=== PATIENT | female | born 1965 | race Caucasian/White ===

== ENCOUNTER → 2018-03-13 10:16 | Outpatient (CLI) | payer OTHER, SELFPAY ==
[2018-03-13 12:51] LABS: Erythrocyte Sedimentation Rate 15 mm/hr (0-30)
[2018-03-13 12:52] LABS: Absolute Lymphocyte Count 2.45 X10^3/ul (0.83-4.51); Absolute Neutrophil Count 5.1 X10^3/uL (2.0-7.7); Basophil# 0.03 X10^3/uL; Basophil% 0.3 % (0-1); Eosinophils% 2.3 % (0-5); Hematocrit 44.1 % (37-47); Hemoglobin 14.9 g/dl (12.0-15.0); Lymphocyte # 2.45 X10^3/ul (4.0); Lymphocyte % 28.6 % (19-41); Mean Corp Hgb Conc 33.8 g/gl (32-36); Mean Corpuscular Hgb 31.8 pg (27.0-32.0); Mean Platelet Vol. 9.7 fl (6.2-12.0); Monocyte# 0.73 X10^3/uL; Monocyte% 8.5 % (0-10); Neutrophil # 5.13 X10^3/uL (2.7-7.7); Neutrophil % 59.8 % (47-70); Platelet Count 286 K/mm3 (150-450); RBC Distribution Width SD 43.4 fl (35.1-43.9); Red Blood Count 4.69 M/mm3 (4.2-5.4); White Blood Count 8.6 K/mm3 (4.4-11.0)
[2018-03-13 12:53] LABS: POSITIVE COUNT NO; POSITIVE DIFFERENTIAL NO; POSITIVE MORPHOLOGY NO
[2018-03-13 15:40] LABS: ALB/GLOB Ratio 0.9 RATIO (0.9-2.4); AST(SGOT) 21 U/L (15-37); Alanine Aminotransfer ALT/SGPT 39 U/L (13-56); Albumin, Serum 3.6 g/dL (3.2-5.0); Alkaline Phosphatase 95 U/L (45-117); Anion Gap 8 (5-15); BUN 15 mg/dL (7-18); CRP 5.17 mg/L (0.0-3.0); Calcium,Total 9.1 mg/dL (8.5-10.1); Chloride 106 mmol/L (98-107); Creatinine, Serum 0.71 mg/dL (0.55-1.02); EST Glomerular Filtration Rate 91 mL/min (>60); Est Glom Filt Rate - Afr Amer 110 mL/min (>60); Globulin 3.8 g/dL (2.2-4.2); Glucose 91 mg/dL (74-106); Potassium 3.8 mmol/L (3.5-5.1); Protein, Total 7.4 g/dL (6.4-8.2); Rheumatoid Factor < 10.0 IU/mL (<15); Sodium Level 141 mmol/L (136-145)
[2018-03-15 12:06] LABS: ANTINUCLEAR ANTIBODIES DIRECT Negative (Negative)
[2018-03-17 11:22] LABS: CCP IgG Antibodies 4 units (0-19); HEPATITIS B SURFACE AG Negative (Negative); HLA B27 Negative (.); Hep B Surface Antibodies Non Reactive (.); Hep C Antibodies <0.1 s/co ratio (0.0-0.9)
== END ==
LOC: MTLAB 10:20
PROVIDERS: Family Provider Family Medicine; PCP Family Medicine; Visit Provider Internal Medicine Rheumatology
DX: L40.59 Other psoriatic arthropathy (principal); L40.8 Other psoriasis; M79.7 Fibromyalgia; K21.9 Gastro-esophageal reflux disease without esophagitis; I10 Essential (primary) hypertension; G43.909 Migraine, unspecified, not intractable, without status migrainosus
CPT/HCPCS: 36415; 72170; 80053; 81374; 85025; 85652; 86038; 86140; 86200; 86431; 86706; 86803; 87340

== ENCOUNTER 2018-03-15 12:26 | Emergency (ER) | payer OTHER, SELFPAY ==
[2018-03-15 12:27] VITALS: BP 112/70; PULSE 118; RESP 18; TEMP 36.2; O2SAT 96; BMI 44.1
--- NOTE | 2018-03-15 12:51 | ED.VISSUMM ---
- ER Visit Summary Date of Service: 03/15/18 Chief Complaint: Abdominal pain History of Present Illness: The patient is a 53 F presenting with right upper quadrant abdominal pain. She states she had an episode about a month ago with similar complaints. It then resolved. She states right upper quadrant pain started again today. No change with eating. She has associated nausea with no vomiting. She has constipation. She denies fever. She went to urgent care today and they sent her to the ED for further evaluation. Physical Examination: Vitals are stable. Patient is afebrile. Alert no acute distress. HEENT exam is unremarkable. Neck is supple. Lungs are clear and equal bilaterally. Heart is regular rate and rhythm. Abdomen is soft right upper quadrant tenderness with no rebound or guarding Extremities are unremarkable. Skin is warm and dry. No focal neurologic deficit. Remainder of exam is unremarkable. Emergency Department Course and Treatment: Patient declined pain medications. CBC shows a white count of 11.5. Chemistries unremarkable other than BUN 28. Liver lipase are normal. Ultrasound of the gallbladder shows a solitary gallstone, fatty infiltration of the liver. On re-evaluation, patient is resting comfortably. She is requesting to go home. She is given a prescription for Bentyl and Zofran. She is advised to follow-up with her primary care physician. Advised return ED if worsening complaints. Disposition: Discharge home Impression: Cholelithiasis, abdominal pain This note was generated with [employer] dictation software. It may contain incorrect words, spelling, and punctuation that were not noted in review of the chart prior to signing ED Disposition - Plan for ED Patient: Chief Complaint: Abd Pain Instructions: ED Abdominal Pain Gallstone Poss Prescriptions: Ondansetron [Zofran Odt] 4 mg PO Q8H PRN PRN #10 tablet PRN Reason: Nausea Dicyclomine HCl [Bentyl] 20 mg PO TIDAC #20 capsule Referrals: Raymundo Guidry MD [Primary Care Provider] - Mario Posadas MD [STAFF PHYSICIAN] -
[2018-03-15 13:11] LABS: Absolute Lymphocyte Count 2.77 X10^3/ul (0.83-4.51); Absolute Neutrophil Count 7.3 X10^3/uL (2.0-7.7); Basophil# 0.02 X10^3/uL; Basophil% 0.2 % (0-1); Eosinophil# 0.24 X10^3/uL; Eosinophils% 2.1 % (0-5); Hematocrit 43.8 % (37-47); Hemoglobin 14.6 g/dl (12.0-15.0); Lymphocyte # 2.77 X10^3/ul (4.0); Lymphocyte % 24.1 % (19-41); Mean Corp Hgb Conc 33.3 g/gl (32-36); Mean Corpuscular Hgb 31.3 pg (27.0-32.0); Mean Platelet Vol. 8.9 fl (6.2-12.0); Monocyte# 1.07 X10^3/uL; Monocyte% 9.3 % (0-10); Neutrophil # 7.34 X10^3/uL (2.7-7.7); Neutrophil % 63.9 % (47-70); POSITIVE COUNT NO; POSITIVE DIFFERENTIAL NO; POSITIVE MORPHOLOGY NO; Platelet Count 257 K/mm3 (150-450); RBC Distribution Width CV 13.2 % (11.6-14.6); RBC Distribution Width SD 45.1 fl (35.1-43.9); Red Blood Count 4.66 M/mm3 (4.2-5.4); White Blood Count 11.5 K/mm3 (4.4-11.0)
[2018-03-15 13:26] LABS: AST(SGOT) 23 U/L (15-37); Alanine Aminotransfer ALT/SGPT 36 U/L (13-56); Albumin, Serum 3.6 g/dL (3.2-5.0); Alkaline Phosphatase 93 U/L (45-117); Anion Gap 8 (5-15); BUN 28 mg/dL (7-18); BUN/Creat Ratio 27.5 RATIO (10-20); Bilirubin, Direct 0.08 mg/dL (0.00-0.30); Calcium,Total 9.2 mg/dL (8.5-10.1); Chloride 107 mmol/L (98-107); Creatinine, Serum 1.02 mg/dL (0.55-1.02); EST Glomerular Filtration Rate 60 mL/min (>60); Est Glom Filt Rate - Afr Amer 73 mL/min (>60); Globulin 3.9 g/dL (2.2-4.2); Glucose 93 mg/dL (74-106); Lipase 129 U/L (73-393); Potassium 3.7 mmol/L (3.5-5.1); Protein, Total 7.5 g/dL (6.4-8.2); Sodium Level 140 mmol/L (136-145)
--- NOTE | 2018-03-15 15:01 | ED.DEP ---
ED Disposition - Plan for ED Patient: Chief Complaint: Abd Pain Instructions: ED Abdominal Pain Gallstone Poss Prescriptions: Ondansetron [Zofran Odt] 4 mg PO Q8H PRN PRN #10 tablet PRN Reason: Nausea Dicyclomine HCl [Bentyl] 20 mg PO TIDAC #20 capsule Referrals: Raymundo Guidry MD [Primary Care Provider] - Mario Posadas MD [STAFF PHYSICIAN] -
[2018-03-15 15:17] VITALS: BP 137/80; PULSE 67; RESP 18; O2SAT 96
== END 2018-03-15 15:18 | disposition home or self-care (01) ==
LOC: ED 12:54
PROVIDERS: Emergency Provider Emergency Medicine; Family Provider Family Medicine; PCP Family Medicine
DX: K80.20 Calculus of gallbladder without cholecystitis without obstruction (principal); K76.0 Fatty (change of) liver, not elsewhere classified; I10 Essential (primary) hypertension; Z72.0 Tobacco use
CPT/HCPCS: 76705; 80048; 80076; 83690; 85025; 99283; A4216

== ENCOUNTER → 2018-06-02 14:56 | Outpatient (CLI) | payer OTHER, SELFPAY ==
[2018-06-02 16:17] LABS: Absolute Lymphocyte Count 3.42 X10^3/ul (0.83-4.51); Absolute Neutrophil Count 6.9 X10^3/uL (2.0-7.7); Basophil# 0.03 X10^3/uL; Basophil% 0.3 % (0-1); Eosinophil# 0.33 X10^3/uL; Eosinophils% 2.8 % (0-5); Hematocrit 40.8 % (37-47); Hemoglobin 13.9 g/dl (12.0-15.0); Lymphocyte # 3.42 X10^3/ul (4.0); Lymphocyte % 28.7 % (19-41); Mean Corp Hgb Conc 34.1 g/gl (32-36); Mean Corpuscular Hgb 32.6 pg (27.0-32.0); Mean Corpuscular Volume 95.8 fL (81-99); Mean Platelet Vol. 9.1 fl (6.2-12.0); Monocyte# 1.17 X10^3/uL; Monocyte% 9.8 % (0-10); Neutrophil # 6.87 X10^3/uL (2.7-7.7); Neutrophil % 57.6 % (47-70); POSITIVE COUNT NO; POSITIVE DIFFERENTIAL NO; POSITIVE MORPHOLOGY NO; Platelet Count 294 K/mm3 (150-450); RBC Distribution Width SD 43.2 fl (35.1-43.9); Red Blood Count 4.26 M/mm3 (4.2-5.4); White Blood Count 11.9 K/mm3 (4.4-11.0)
[2018-06-02 16:31] LABS: AST(SGOT) 19 U/L (15-37); Alanine Aminotransfer ALT/SGPT 28 U/L (13-56); Albumin, Serum 3.5 g/dL (3.2-5.0); Alkaline Phosphatase 91 U/L (45-117); Anion Gap 7 (5-15); BUN 18 mg/dL (7-18); BUN/Creat Ratio 23.5 RATIO (10-20); Calcium,Total 8.9 mg/dL (8.5-10.1); Chloride 105 mmol/L (98-107); Creatinine, Serum 0.77 mg/dL (0.55-1.02); EST Glomerular Filtration Rate 84 mL/min (>60); Est Glom Filt Rate - Afr Amer 101 mL/min (>60); Globulin 3.4 g/dL (2.2-4.2); Glucose 97 mg/dL (74-106); Potassium 3.3 mmol/L (3.5-5.1); Protein, Total 6.9 g/dL (6.4-8.2); Sodium Level 138 mmol/L (136-145)
== END ==
PROVIDERS: Family Provider Family Medicine; PCP Family Medicine; Referring Provider Internal Medicine Rheumatology; Visit Provider Internal Medicine Rheumatology
DX: L40.59 Other psoriatic arthropathy (principal); M79.7 Fibromyalgia; L40.8 Other psoriasis; K21.9 Gastro-esophageal reflux disease without esophagitis; I10 Essential (primary) hypertension; G43.909 Migraine, unspecified, not intractable, without status migrainosus
CPT/HCPCS: 36415; 80053; 85025

== ENCOUNTER → 2018-09-05 14:53 | Outpatient (CLI) | payer OTHER, SELFPAY ==
[2018-09-05 17:34] LABS: Absolute Neutrophil Count 6.3 X10^3/uL (2.0-7.7); Basophil# 0.03 X10^3/uL; Basophil% 0.3 % (0-1); Eosinophils% 1.7 % (0-5); Hematocrit 42.2 % (37-47); Hemoglobin 13.7 g/dl (12.0-15.0); Lymphocyte % 33.2 % (19-41); Mean Corp Hgb Conc 32.5 g/gl (32-36); Mean Corpuscular Volume 98.6 fL (81-99); Mean Platelet Vol. 9.3 fl (6.2-12.0); Monocyte# 1.08 X10^3/uL; Monocyte% 9.4 % (0-10); Neutrophil # 6.27 X10^3/uL (2.7-7.7); Platelet Count 327 K/mm3 (150-450); RBC Distribution Width SD 48.7 fl (35.1-43.9); Red Blood Count 4.28 M/mm3 (4.2-5.4); White Blood Count 11.4 K/mm3 (4.4-11.0)
[2018-09-05 17:36] LABS: POSITIVE COUNT NO; POSITIVE DIFFERENTIAL NO; POSITIVE MORPHOLOGY NO
[2018-09-05 17:44] LABS: ALB/GLOB Ratio 1.1 RATIO (0.9-2.4); AST(SGOT) 16 U/L (15-37); Alanine Aminotransfer ALT/SGPT 28 U/L (13-56); Albumin, Serum 3.6 g/dL (3.2-5.0); Alkaline Phosphatase 87 U/L (45-117); Anion Gap 11 (5-15); BUN 15 mg/dL (7-18); BUN/Creat Ratio 17.6 RATIO (10-20); Chloride 102 mmol/L (98-107); Creatinine, Serum 0.85 mg/dL (0.55-1.02); EST Glomerular Filtration Rate 74 mL/min (>60); Est Glom Filt Rate - Afr Amer 89 mL/min (>60); Globulin 3.4 g/dL (2.2-4.2); Glucose 79 mg/dL (74-106); Potassium 3.4 mmol/L (3.5-5.1); Sodium Level 139 mmol/L (136-145)
== END ==
PROVIDERS: Family Provider Family Medicine; PCP Family Medicine; Referring Provider Internal Medicine Rheumatology; Visit Provider Internal Medicine Rheumatology
DX: L40.59 Other psoriatic arthropathy (principal); M79.7 Fibromyalgia; L40.8 Other psoriasis; K21.9 Gastro-esophageal reflux disease without esophagitis; I10 Essential (primary) hypertension; G43.909 Migraine, unspecified, not intractable, without status migrainosus; Z79.899 Other long term (current) drug therapy
CPT/HCPCS: 36415; 80053; 85025

== ENCOUNTER → 2018-11-30 14:55 | Outpatient (CLI) | payer OTHER, SELFPAY ==
[2018-11-30 17:31] LABS: Absolute Lymphocyte Count 3.45 X10^3/ul (0.83-4.51); Absolute Neutrophil Count 5.8 X10^3/uL (2.0-7.7); Basophil# 0.04 X10^3/uL; Basophil% 0.4 % (0-1); Eosinophil# 0.17 X10^3/uL; Eosinophils% 1.7 % (0-5); Hematocrit 42.4 % (37-47); Hemoglobin 14.7 g/dl (12.0-15.0); Lymphocyte # 3.45 X10^3/ul (4.0); Lymphocyte % 33.7 % (19-41); Mean Corp Hgb Conc 34.7 g/gl (32-36); Mean Corpuscular Hgb 33.9 pg (27.0-32.0); Mean Corpuscular Volume 97.9 fL (81-99); Mean Platelet Vol. 9.1 fl (6.2-12.0); Monocyte# 0.77 X10^3/uL; Monocyte% 7.5 % (0-10); Neutrophil # 5.77 X10^3/uL (2.7-7.7); Neutrophil % 56.3 % (47-70); Platelet Count 312 K/mm3 (150-450); RBC Distribution Width CV 13.8 % (11.6-14.6); RBC Distribution Width SD 48.9 fl (35.1-43.9); Red Blood Count 4.33 M/mm3 (4.2-5.4); White Blood Count 10.2 K/mm3 (4.4-11.0)
[2018-11-30 17:35] LABS: POSITIVE COUNT NO; POSITIVE DIFFERENTIAL NO; POSITIVE MORPHOLOGY NO
[2018-11-30 18:20] LABS: ALB/GLOB Ratio 1.1 RATIO (0.9-2.4); AST(SGOT) 23 U/L (15-37); Alanine Aminotransfer ALT/SGPT 31 U/L (13-56); Albumin, Serum 3.9 g/dL (3.2-5.0); Alkaline Phosphatase 84 U/L (45-117); Anion Gap 11 (5-15); BUN 23 mg/dL (7-18); BUN/Creat Ratio 23.6 RATIO (10-20); Calcium,Total 9.3 mg/dL (8.5-10.1); Chloride 103 mmol/L (98-107); Creatinine, Serum 0.98 mg/dL (0.55-1.02); EST Glomerular Filtration Rate 63 mL/min (>60); Est Glom Filt Rate - Afr Amer 77 mL/min (>60); Globulin 3.6 g/dL (2.2-4.2); Glucose 90 mg/dL (74-106); Potassium 3.3 mmol/L (3.5-5.1); Protein, Total 7.5 g/dL (6.4-8.2); Sodium Level 138 mmol/L (136-145)
== END ==
PROVIDERS: Family Provider Family Medicine; PCP Family Medicine; Referring Provider Internal Medicine Rheumatology; Visit Provider Internal Medicine Rheumatology
DX: L40.59 Other psoriatic arthropathy (principal); M79.7 Fibromyalgia; L40.8 Other psoriasis; K21.9 Gastro-esophageal reflux disease without esophagitis; I10 Essential (primary) hypertension; G43.909 Migraine, unspecified, not intractable, without status migrainosus; Z79.899 Other long term (current) drug therapy
CPT/HCPCS: 36415; 80053; 85025

== ENCOUNTER → 2019-02-08 15:37 | Outpatient (CLI) | payer OTHER, SELFPAY ==
[2019-02-08 17:43] LABS: Absolute Lymphocyte Count 4.11 X10^3/ul (0.83-4.51); Absolute Neutrophil Count 7.8 X10^3/uL (2.0-7.7); Basophil# 0.04 X10^3/uL; Basophil% 0.3 % (0-1); Eosinophil# 0.24 X10^3/uL; Eosinophils% 1.8 % (0-5); Hematocrit 40.4 % (37-47); Hemoglobin 13.7 g/dl (12.0-15.0); Lymphocyte # 4.11 X10^3/ul (4.0); Lymphocyte % 30.6 % (19-41); Mean Corp Hgb Conc 33.9 g/gl (32-36); Mean Corpuscular Hgb 33.3 pg (27.0-32.0); Mean Corpuscular Volume 98.3 fL (81-99); Mean Platelet Vol. 9.3 fl (6.2-12.0); Monocyte# 1.21 X10^3/uL; Neutrophil # 7.75 X10^3/uL (2.7-7.7); Neutrophil % 57.7 % (47-70); Platelet Count 307 K/mm3 (150-450); RBC Distribution Width CV 13.8 % (11.6-14.6); RBC Distribution Width SD 48.8 fl (35.1-43.9); Red Blood Count 4.11 M/mm3 (4.2-5.4); White Blood Count 13.4 K/mm3 (4.4-11.0)
[2019-02-08 17:55] LABS: POSITIVE COUNT NO; POSITIVE DIFFERENTIAL NO; POSITIVE MORPHOLOGY NO
[2019-02-08 18:03] LABS: AST(SGOT) 19 U/L (15-37); Alanine Aminotransfer ALT/SGPT 31 U/L (13-56); Albumin, Serum 3.6 g/dL (3.2-5.0); Alkaline Phosphatase 86 U/L (45-117); Anion Gap 11 (5-15); BUN 16 mg/dL (7-18); BUN/Creat Ratio 16.3 RATIO (10-20); Calcium,Total 8.7 mg/dL (8.5-10.1); Chloride 103 mmol/L (98-107); Creatinine, Serum 0.98 mg/dL (0.55-1.02); EST Glomerular Filtration Rate 63 mL/min (>60); Est Glom Filt Rate - Afr Amer 76 mL/min (>60); Globulin 3.5 g/dL (2.2-4.2); Glucose 93 mg/dL (74-106); Potassium 2.9 mmol/L (3.5-5.1); Protein, Total 7.1 g/dL (6.4-8.2); Sodium Level 138 mmol/L (136-145)
== END ==
PROVIDERS: Family Provider Family Medicine; PCP Family Medicine; Referring Provider Internal Medicine Rheumatology; Visit Provider Internal Medicine Rheumatology
DX: L40.59 Other psoriatic arthropathy (principal); M79.7 Fibromyalgia; M18.12 Unilateral primary osteoarthritis of first carpometacarpal joint, left hand; L40.8 Other psoriasis; K21.9 Gastro-esophageal reflux disease without esophagitis; I10 Essential (primary) hypertension; G43.909 Migraine, unspecified, not intractable, without status migrainosus; Z79.899 Other long term (current) drug therapy
CPT/HCPCS: 36415; 80053; 85025

== ENCOUNTER 2019-04-10 11:25 | Emergency (ER) | payer OTHER, SELFPAY ==
[2019-04-10 11:26] VITALS: BP 145/81; PULSE 83; RESP 17; TEMP 36.3; O2SAT 96; BMI 41.5
--- NOTE | 2019-04-10 11:33 | ED.DCSUM_ITS ---
History of Present Illness Chief Complaint: Laceration Informant: Patient Onset: Today Context: Sudden Onset Timing: Continuous Current Severity: Moderate Maximum Severity: Moderate Narrative: The patient presents to the emergency department with injury to her right index finger. 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 She states that she went to put a piece under the drill, and the drill started. It went into the dorsum of her hand over her nail. She states it was only there for a second. She had immediate pain and bleeding. Her tetanus is up-to-date. The patient is otherwise been in her normal state of health. Prior similar symptoms: No Recent Illness/Hospitalization: No Past Medical History - Allergies and Home Meds Allergies/Adverse Reactions: Allergies venlafaxine HCl [From Effexor] Allergy (Verified 04/10/19 11:26) Vomiting Primary Care Physician: Shivam Terrazas DO [STAFF PHYSICIAN] - 2 Days for wound check Raymundo Guidry MD [Primary Care Provider] - Prior records reviewed: Yes Past Medical History: - - Psoriatic arthritis Smoking Status: Current every day smoker Review of Systems General: Denies: Chills, Fever, Sweats Eyes: Denies: Visual changes - bilaterally, Diplopia ENT: Denies: Rhinorrhea, Sore throat Cardiovascular: Denies: Chest pain, Palpitations Respiratory: Denies: Dyspnea, Cough, Dyspnea on exertion Gastrointestinal: Denies: Abdominal pain, Nausea, Vomiting, Diarrhea, Melena, Hematochezia Genitourinary: Denies: Dysuria, Hematuria, Frequency Musculoskeletal: Denies: Back pain, Extremity Pain Skin: Denies: Rash, Wounds Neurological: Denies: Headache, Weakness, Numbness Physical Exam Vital Signs/Narrative: Vital Signs Temp Pulse Resp BP Pulse Ox 04/10/19 11:26 97.4 F L 83 17 145/81 H 96 Inital Vital Signs reviewed: Yes General: Well nourished, Well developed, No Acute Distress Head: Normocephalic, Atraumatic Eyes: Perrl, EOMI ENT: Moist mucous membranes, No rhinorrhea Neck: Supple, Nontender Cardiovascular: Regular rate, Regular rhythm, No murmurs Respiratory: No distress, CTA bilaterally, Chest nontender Abdomen: Soft, Nontender, Nondistended, Normal bowel sounds Back: Nontender, Normal Inspection Extremities: No edema, Tenderness - Patient has total nail avulsion of the right index. There is laceration. Does go to the tip of the finger. There is a flap. Cap refill is less than 2 seconds. Skin: Normal color, No rash Neurological: Alert, Oriented x3, Cranial nerves II-XII grossly intact, Normal Strength, Normal Sensation Psychological: Normal affect, Normal Mood Diagnostic/Tx/Re-eval Clinical Impression(s) from Imaging Studies Hand X-Ray 04/10/19 11:45 IMPRESSION: Small dorsal osteophyte at the base of the second distal phalanx. No demonstrated fracture. Electronically Signed: Olaf Gooden MD at 12:04 EDT Tel , Service support , - Medical Decision Making The patient presents with injury to her nail. She underwent plain films. There was no evidence of acute fracture. The patient was consented for digital block. Under sterile fashion, digital block was performed. The patient had a total of 10 cc of bupivacaine injected at the base of the second phalanges. Once anesthesia was achieved, the finger was aggressively cleaned. It was irrigated with 250 cc of normal saline. There was a stellate laceration through the nail. The nail base was still intact. The rest of the nail was macerated and was removed. 3 5-0 gut sutures were used to reapproximate the nail bed. 3 simple 5-0 Ethilon sutures were used to tack the finger together. She had lost a decent portion of the nail so a Surgifoam dressing was placed. The patient was placed in AlumaFoam splint. Although the x-ray showed no evidence of acute fracture, I am going to place patient on Keflex. Did residential counselor her there is a chance this nail is not going to grow in normally given the amount of trauma. She will be given outpatient follow-up with orthopedics. I did residential counselor her that if her symptoms are worsening or she cannot be seen within the next 48 hours to return. She is comfortable with this plan of care. Impression 1. Right second finger nail laceration with repair ED Disposition - Plan for ED Patient: Instructions: LACERATION, Hand Prescriptions: Cephalexin [Keflex] 500 mg PO Q6 #40 cap Prescription Printed Referrals: Raymundo Guidry MD [Primary Care Provider] - Shivam Terrazas DO [STAFF PHYSICIAN] - 2 Days for wound check
--- NOTE | 2019-04-10 11:45 | RAD_ITS ---
STUDY: X-RAY - RIGHT HAND REASON FOR EXAM: Laceration to right distal index finger. TECHNIQUE: 3 view(s) of the hand. COMPARISON: None. FINDINGS: Normal radiocarpal articulation. Normal distal radioulnar joint. Normal visualized carpal bones. Normal carpal articulations Normal carpometacarpal articulation of the thumb. Normal second through fifth carpometacarpal joints. Normal metacarpi. Normal metacarpophalangeal joint of the thumb. Normal interphalangeal joint of the thumb. Normal proximal and distal phalanges of the thumb. Normal metacarpophalangeal joints of the second through fifth fingers. There is a small dorsal osteophyte at the base of the second distal phalanx. Normal phalanges of the second through fifth fingers. The soft tissue structures are unremarkable. RAD/Hand Min 3 Views IMPRESSION: Small dorsal osteophyte at the base of the second distal phalanx. No demonstrated fracture. Electronically Signed: Olaf Gooden MD at 12:04 EDT Tel , Service support ,
[2019-04-10] MEDS: Bupivacaine Mpf 0.5% 30 ML VIAL INFILT (12:05)
[2019-04-10 12:50] VITALS: BP 156/98
[2019-04-10 12:58] VITALS: BP 156/92; PULSE 80; RESP 16; O2SAT 96
== END 2019-04-10 12:59 | disposition home or self-care (01) ==
LOC: ED 11:39
PROVIDERS: Emergency Provider Emergency Medicine; Family Provider Family Medicine; PCP Family Medicine
DX: S61.310A Laceration without foreign body of right index finger with damage to nail, initial encounter (principal); W29.8XXA Contact with other powered hand tools and household machinery, initial encounter; Y93.89 Activity, other specified; Y92.89 Other specified places as the place of occurrence of the external cause; Y99.0 Civilian activity done for income or pay; F17.200 Nicotine dependence, unspecified, uncomplicated
CPT/HCPCS: 11730; 12001; 73130; 99283

== ENCOUNTER 2019-05-28 14:00 | Outpatient (RCR) | payer OTHER, SELFPAY ==
[2019-04-13 08:08] VITALS: BMI 41.5
[2019-05-07 08:24] VITALS: BP 210/94; PULSE 63; RESP 16; TEMP 36.2; BMI 41.5
--- NOTE | 2019-05-07 23:04 | HP.PCM_ITS ---
History of Present Illness Date of Service: 05/07/19 Chief Complaint: Right index finger tip wound with nail bed injury. 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 She went to the ED for evaluation. X-ray showed no fracture. The wound was cleansed and there was a nail bed injury that was suture repaired. She was sent home on Keflex. 10 days later the sutures were removed at [facility]. Some wound separation occurred. Today she denies fever. Past Medical History Past Medical History: Chronic Problems Smoker (Chronic) Past Medical History: Hypertension. Arthritis Surgical History: hysterectomy Allergies/Adverse Reactions: Allergies risankizumab-rzaa [From Skyrizi] Allergy (Verified 05/07/19 09:37) Swelling secukinumab [From Cosentyx] Allergy (Verified 05/07/19 09:37) Swelling venlafaxine HCl [From Effexor] Allergy (Verified 05/07/19 09:37) Vomiting Home Medications: Ambulatory Orders Medication Instructions Recorded Dicyclomine HCl [Bentyl] 20 mg PO TIDAC #20 cap 03/15/18 Hydrochlorothiazide [Hctz] 25 mg PO DAILY 03/15/18 Lisinopril [Zestril] 30 mg PO DAILY 03/15/18 Metoprolol Succinate 25 mg PO DAILY 03/15/18 Omeprazole 20 mg PO DAILY 03/15/18 Ondansetron [Zofran Odt] 4 mg PO Q8H PRN PRN #10 tab 03/15/18 Methotrexate Sodium [Methotrexate] 2.5 mg PO DAILY 04/10/19 - Family History Paternal No pertinent history Lives: Alone Smoking Status: Current every day smoker Alcohol: Rare Drugs: None Review of Systems Constitutional: Denies: Fever, Weight Change, Fatigue Eyes: Denies: Pain HEENT: Denies: Nasal Congestion, Sore Throat Cardiovascular: Denies: Chest Pain Respiratory: Reports: - - patient is a smoker.. Denies: Cough, Shortness of Breath Gastrointestinal: Denies: Constipation, Diarrhea, Nausea, Vomiting Genitourinary: Denies: Frequency, Hematuria Musculoskeletal: Reports: Hand Pain - right index finger tip pain from injury to nail bed.. Denies: Back Pain, Leg Pain, Neck Pain Skin: Reports: Wounds - right index finger tip wound with nail bed injury. Neurological: Denies: Headaches Psychiatric: Denies: Anxiety, Depression Endocrine: Denies: Polydipsia, Polyuria Hematologic/ Lymphatic: Denies: Easy Bruising, Hx of blood clot - Physical Exam Vital Signs Temp Pulse Resp BP 97.1 F L 63 16 210/94 H 05/07/19 08:24 05/07/19 08:24 05/07/19 08:24 05/07/19 08:24 General: Alert, Oriented x3 HEENT: PERRLA, EOMI Oral: Moist Mucosa Neck: Supple Lungs: Clear to auscultation Cardiovascular: Regular rate, Regular Rhythm Abdomen: Soft, Non-Distended Extremities: No clubbing, No cyanosis, No edema, Peripheral Pulses Normal, - - has good range of motion right hand and fingers. She can make a fist. Skin: Ulcer/ Wound - healing nail bed injury right index finger. Proximal nail plate present at the radial base. Healing wound at the ulnar aspect of hyponychial area. Wound Measurements and Assessment WC - Nurse 1 - General Ulcer Measurement Start: 05/04/19 09:11 Freq: Status: Active Protocol: Activity Type Activity Date Activity User E-Sign Co-Sign Detail Recorded Client Recorded Date Recorded By Document 05/07/19 08:24 MW [id number] 05/07/19 08:31 MW 05/07/19 08:24 Wound Center Nurse 1 [Ulcer Assessment] #1 right index finger -Combined with other wound No -Current Size (cm) - Length 0.1 -Current Size (cm) - Width 0.1 -Current Size (cm) - Depth 0.1 -Total Square Cm 0.01 -Date of Last Picture (Recall this 05/07/19 field) -Photo Taken Yes -Epithelialization None Present -Tunneling No -Undermining/Tunneling No -Circular Undermining No -Exudate Amt None Present -Wound Margin Flat & Intact -Granulation Amt None Present (0 %) -Granulation Quality N/A -Slough/Fibrin Yes -Necrosis Amt Small (1-33%) -Necrotic Tissue Type Adherent Slough -Structure Exposed N/A -Texture (Ronda-wound Skin Appearance) Assessed, Scarring -Moisture (Ronda-wound Skin Appearance No Abnormality, ) Assessed -Color (Ronda-wound Skin Appearance) No Abnormality, Assessed -Temperature (Ronda-wound Skin No Abnormality Appearance) (Pt Warm) -Tenderness on Palpation (Ronda-wound Yes Skin Appearance) -Ulcer Cleansing Rinsed/ Irrigated with Saline -Foul Odor after Cleansing No -Anesthetic Used 4% Lidocaine Solution,5% Lidocaine Gel [Edema Assessment] -Lower Limb Edema Present No - Nurse 2 - General Ulcer CM Notes Start: 05/04/19 09:11 Freq: Status: Active Protocol: Activity Type Activity Date Activity User E-Sign Co-Sign Detail Recorded Client Recorded Date Recorded By Document 05/07/19 09:33 JF [id number] 05/07/19 09:34 05/07/19 09:33 Wound Center Nurse 2 [Procedure/Treatment] #1 right index finger -Correct Patient No -Correct Side, Site, Position No -Correct Procedure No -Procedure Performed No -Wound/Ulcer Outcome Not Healed [See Physician Procedure note for Specifics] Pain Scale: 0-10 Numeric [Pain] -Is Patient Pain Free? Yes Lymphatic: - - no axillary adenopathy. Neurological: Cranial nerves II-XII grossly intact Psych/Mental Status: Normal Affect, Appropriate Debridement Note Post-Debridement Measurements/Treatment - Nurse 2 - General Ulcer CM Notes Start: 05/04/19 09:11 Freq: Status: Active Protocol: Activity Type Activity Date Activity User E-Sign Co-Sign Detail Recorded Client Recorded Date Recorded By Document 05/07/19 09:33 JF [id number] 05/07/19 09:34 05/07/19 09:33 Wound Center Nurse 2 #1 right index finger -Correct Patient No -Correct Side, Site, Position No -Correct Procedure No -Procedure Performed No -Wound/Ulcer Outcome Not Healed Pain Scale: 0-10 Numeric Is Patient Pain Free? Yes Wound debrided: #1 right index finger tip. Laterality: Right Wound Grade/Stage: 3. No debridement was completed today - the nail bed injury is suture repaired and healing satisfactory. the wound on the ulnar aspect hyponychial area is healing satisfactory. Assessment/Plan Assessment: 1. Contact with power drill as cause of acciental injury to right index finger involving the nail and nail bed. 2. Open wound right index finger with damage to nail. 3. Nail bed injury right index finger. 4. Smoker. Plan: X-ray reviewed. No fracture seen. The right index finger wound is healing satisfactory. There is an exposed suture in the nail bed which will dissolve but has extra length which was trimmed. The wound on the ulnar aspect hyponychial area is healing satisfactory. No need for debridement at this time. Will apply Collagen Hydrogel to the wound daily followed by a band aid while at work. May remove the band aid when not at work. Encourage range of motion exercises to minimize stiffness. She is back at work with restrictions. 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 C ontinue these restrictions until seen again. Followup 3 weeks. Encouraged patient to stop smoking as it may have deleterious effects on wound healing. Discussed with the patient that the nail may develop a deformity during the healing process. There is also a chance in the future of developing osteomyelitis. There was no fracture on x-ray. If increasing pain and redness and swelling develop in the future, will evaluate for osteomyelitis that would need antibiotics and possible operative debridement and possible tip amputation. This scenario would be related to her initial work related injury. She is at increased risk of suboptimal healing because of her history of smoking and her history of arthritis that necessitates the use of Methotrexate. She is aware of that possibility and voices understanding. Code Visit Office Visits / Consults: [id number] OV L4 New - ICD-10 - S61.300A, W29.8xxA, S69.91xA, F17.200
[2019-05-28 14:29] VITALS: BP 144/84; PULSE 86; RESP 18; TEMP 36.6; BMI 41.5
--- NOTE | 2019-05-28 18:43 | PCM.WC.PN ---
Type of Wound Date of Service: 05/28/19 Chief Complaint: Right index finger tip wound with nail bed injury. 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 She went to the ED for evaluation. X-ray showed no fracture. The wound was cleansed and there was a nail bed injury that was suture repaired. She was sent home on Keflex. 10 days later the sutures were removed at [facility]. Some wound separation occurred which has healed. She has intermittent zingers at the finger tip when it bumps into things. Today she denies fever. Progress of Wound: Healed. - Physical Exam Vital Signs Temp Pulse Resp BP 97.8 F 86 18 144/84 H 05/28/19 14:29 05/28/19 14:29 05/28/19 14:29 05/28/19 14:29 Wound Measurements and Assessment WC - Nurse 1 - General Ulcer Measurement Start: 05/04/19 09:11 Freq: Status: Active Protocol: Activity Type Activity Date Activity User E-Sign Co-Sign Detail Recorded Client Recorded Date Recorded By Document 05/28/19 14:29 DL [id number] 05/28/19 14:33 DL 05/28/19 14:29 Wound Center Nurse 1 [Ulcer Assessment] #1 right index finger -Current Size (cm) - Length 0.1 -Current Size (cm) - Width 0.1 -Current Size (cm) - Depth 0.1 -Total Square Cm 0.01 -Photo Taken No -Exudate Amt None Present -Wound Margin Indistinct, Non -Visible -Granulation Amt Large (67-100%) -Granulation Quality [place] -Necrosis Amt None Present (0 %) -Structure Exposed N/A -Texture (Ronda-wound Skin Appearance) Localized Edema -Moisture (Ronda-wound Skin Appearance No Abnormality ) -Color (Ronda-wound Skin Appearance) Erythema,Rubor -Temperature (Ronda-wound Skin No Abnormality Appearance) (Pt Warm) -Tenderness on Palpation (Ronda-wound No Skin Appearance) -Ulcer Cleansing Rinsed/ Irrigated with Saline -Foul Odor after Cleansing No -Anesthetic Used 4% Lidocaine Solution WC - Nurse 2 - General Ulcer CM Notes Start: 05/04/19 09:11 Freq: Status: Active Protocol: Activity Type Activity Date Activity User E-Sign Co-Sign Detail Recorded Client Recorded Date Recorded By Document 05/28/19 14:53 [id number] 05/28/19 14:55 05/28/19 14:53 Wound Center Nurse 2 [Procedure/Treatment] -Time 14:53 -Correct Patient Yes -Correct Side, Site, Position Yes -Correct Procedure Yes -Procedure Performed Yes -Type of Procedure Debridement -Clinical Debridement Selective -Post Debridement Size (cm) - Length 0.1 -Post Debridement Size (cm) - Width 0.1 -Post Debridement Size (cm) - Depth 0.1 -Total Square Cm 0.01 -Wound/Ulcer Outcome Not Healed -Ulcer Cleansing Rinsed/ Irrigated with Saline -Foul Odor after Cleansing No -Bioengineered Tissue No -Bleeding Controlled with Pressure -Offloading No -Treatment Response Procedure Tolerated Well [See Physician Procedure note for Specifics] Pain Scale: 0-10 Numeric [Pain] -Is Patient Pain Free? Yes Debridement Note Post-Debridement Measurements/Treatment WC - Nurse 2 - General Ulcer CM Notes Start: 05/04/19 09:11 Freq: Status: Active Protocol: Activity Type Activity Date Activity User E-Sign Co-Sign Detail Recorded Client Recorded Date Recorded By Document 05/07/19 09:33 JF [id number] 05/07/19 09:34 Document 05/28/19 14:53 [id number] 05/28/19 14:55 05/07/19 05/28/19 09:33 14:53 Wound Center Nurse 2 #1 right index finger -Time 14:53 -Correct Patient No Yes -Correct Side, Site, Position No Yes -Correct Procedure No Yes -Procedure Performed No Yes -Type of Procedure Debridement -Clinical Debridement Selective -Post Debridement Size (cm) - Length 0.1 -Post Debridement Size (cm) - Width 0.1 -Post Debridement Size (cm) - Depth 0.1 -Total Square Cm 0.01 -Wound/Ulcer Outcome Not Healed Not Healed -Ulcer Cleansing Rinsed/ Irrigated with Saline -Foul Odor after Cleansing No -Bioengineered Tissue No -Bleeding Controlled with Pressure -Offloading No -Treatment Response Procedure Tolerated Well Pain Scale: 0-10 Numeric Is Patient Pain Free? Yes Yes Wound debrided: #1 Right index finger tip. Laterality: Right Wound Grade/Stage: 3. Type of Debridement: Selective debridement Anesthesia Used: 4% Lidocaine Solution Depth: - - surface dry scabbing was debrided with healing nail bed underneath. Percentage of wound debrided: 100 Instrument Used: 3mm curette Tissue Removed: surface dry scabbing was debrided with healing nail bed underneath. Severity: Limited To Skin Breakdown - surface dry scabbing was debrided with healing nail bed underneath. Amount of bleeding with debridement: None Bleeding Controlled with: - - no bleeding was seen. Patient tolerated procedure well Assessment/Plan Assessment: 1. Contact with power drill as cause of acciental injury to right index finger involving the nail and nail bed. 2. Open wound right index finger with damage to nail, healed. 3. Nail bed injury right index finger, healed. 4. Smoker. 5. Paresthesias right index finger tip. Plan: The right index finger tip wound has healed. The nail bed is healed. She can stop the Collagen Hydrogel at this time. She will continue to wear a band aid while at work. May remove the band aid when not at work. Encourage range of motion exercises to minimize stiffness. She will continue her restrictions at work. 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 With the current zingers that she experiences intermittently puts her hands at risk if she is operating machinery. Instructed her on desensitization techniques to help with the zingers. Followup 3 weeks. She may return to no restrictions once the paresthesias have resolved. Depending on the improvement with desensitization, she may also need short term Neurontin. Encouraged patient to stop smoking as it may have deleterious effects on wound healing. Discussed with the patient that the nail may develop a deformity during the healing process. There is also a chance in the future of developing osteomyelitis. There was no fracture on x-ray. If increasing pain and redness and swelling develop in the future, will evaluate for osteomyelitis that would need antibiotics and possible operative debridement and possible tip amputation. This scenario would be related to her initial work related injury. She is at increased risk of suboptimal healing because of her history of smoking and her history of arthritis that necessitates the use of Methotrexate. She is aware of that possibility and voices understanding. Encouraged patient to stop smoking as it may have deleterious effects on wound healing.
== END 2019-05-31 23:59 ==
LOC: WC 14:00
PROVIDERS: Family Provider Family Medicine; PCP Family Medicine; Visit Provider Nurse Practitioner
DX: S61.310A Laceration without foreign body of right index finger with damage to nail, initial encounter (principal); W31.1XXA Contact with metalworking machines, initial encounter; Y93.89 Activity, other specified; Y92.89 Other specified places as the place of occurrence of the external cause; Y99.0 Civilian activity done for income or pay; F17.200 Nicotine dependence, unspecified, uncomplicated; I10 Essential (primary) hypertension; M19.90 Unspecified osteoarthritis, unspecified site; Z79.899 Other long term (current) drug therapy; R20.2 Paresthesia of skin
CPT/HCPCS: 97597; 99213; G0463

== ENCOUNTER → 2019-05-28 | Outpatient (CLI) | payer OTHER, SELFPAY ==
[2019-05-28 14:29] VITALS: BMI 41.5
[2019-05-28 18:21] LABS: Absolute Lymphocyte Count 2.31 X10^3/uL (0.83-4.51); Absolute Neutrophil Count 5.6 X10^3/uL (2.0-7.7); Basophil# 0.04 X10^3/uL; Basophil% 0.5 % (0-1); Eosinophil# 0.13 X10^3/uL; Eosinophils% 1.5 % (0-5); Hematocrit 44.8 % (37-47); Lymphocyte # 2.31 X10^3/ul (4.0); Lymphocyte % 26.3 % (19-41); Mean Corp Hgb Conc 33.5 g/dL (32-36); Mean Corpuscular Hgb 33.1 pg (27.0-32.0); Mean Corpuscular Volume 98.9 fL (81-99); Monocyte% 6.8 % (0-10); NRBC Flagged by Analyzer 0 % (0-5); Neutrophil # 5.64 X10^3/uL (2.7-7.7); Neutrophil % 64.1 % (47-70); Platelet Count 317 K/mm3 (150-450); RBC Distribution Width CV 13.4 % (11.6-14.6); RBC Distribution Width SD 48.2 fl (35.1-43.9); Red Blood Count 4.53 M/mm3 (4.2-5.4); White Blood Count 8.8 K/mm3 (4.4-11.0)
[2019-05-28 18:46] LABS: BUN 15 mg/dL (7-18); Creatinine, Serum 0.85 mg/dL (0.55-1.02); Glucose 91 mg/dL (74-106)
[2019-05-28 18:47] LABS: ALB/GLOB Ratio 0.9 RATIO (0.9-2.4); AST(SGOT) 24 U/L (15-37); Alanine Aminotransfer ALT/SGPT 33 U/L (13-56); Albumin, Serum 3.6 g/dL (3.2-5.0); Alkaline Phosphatase 87 U/L (45-117); Anion Gap 7 (5-15); BUN/Creat Ratio 17.7 RATIO (10-20); Calcium,Total 8.9 mg/dL (8.5-10.1); Chloride 105 mmol/L (98-107); EST Glomerular Filtration Rate 74 mL/min (>60); Est Glom Filt Rate - Afr Amer 90 mL/min (>60); Globulin 3.8 g/dL (2.2-4.2); Potassium 4.2 mmol/L (3.5-5.1); Protein, Total 7.4 g/dL (6.4-8.2); Sodium Level 137 mmol/L (136-145)
== END | disposition home or self-care (01) ==
PROVIDERS: Family Provider Family Medicine; PCP Family Medicine; Referring Provider Internal Medicine Rheumatology; Visit Provider Internal Medicine Rheumatology
DX: L40.59 Other psoriatic arthropathy (principal); M79.7 Fibromyalgia; M18.12 Unilateral primary osteoarthritis of first carpometacarpal joint, left hand; L40.8 Other psoriasis; K21.9 Gastro-esophageal reflux disease without esophagitis; I10 Essential (primary) hypertension; G43.909 Migraine, unspecified, not intractable, without status migrainosus; Z79.899 Other long term (current) drug therapy
CPT/HCPCS: 36415; 80053; 85025

== ENCOUNTER 2019-06-18 09:51 | Outpatient (RCR) | payer OTHER, SELFPAY ==
[2019-06-01 00:17] VITALS: BP 144/84; PULSE 86; RESP 18; TEMP 36.6
[2019-06-18 12:21] VITALS: BP 157/92; PULSE 77; RESP 16; TEMP 36.9; BMI 41.5
--- NOTE | 2019-06-18 23:21 | PN.PCM_ITS ---
Type of Wound Date of Service: 06/18/19 Chief Complaint: Right index finger tip wound with nail bed injury. 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 She went to the ED for evaluation. X-ray showed no fracture. The wound was cleansed and there was a nail bed injury that was suture repaired. She was sent home on Keflex. 10 days later the sutures were removed at [facility]. Some wound separation occurred which has healed. She had intermittent zingers at the finger tip when it bumps into things which has improved. The occasional zinger is tolerable. Today she denies fever. Progress of Wound: Healed. - Physical Exam Vital Signs Temp Pulse Resp BP 98.4 F 77 16 157/92 H 06/18/19 12:21 06/18/19 12:21 06/18/19 12:21 06/18/19 12:21 General: Alert, Oriented x3 HEENT: PERRLA, EOMI Oral: Moist Mucosa Neck: Supple Lungs: Clear to auscultation Cardiovascular: Regular rate, Regular Rhythm Abdomen: Soft, Non-Distended Extremities: No clubbing, No cyanosis, No edema, Peripheral Pulses Normal, - - right index finger tip is healed. Minimal soreness with palpation. Nail growth present. FROM. Flexion and extension is intact. No evidence of infection. Wound Measurements and Assessment WC - Nurse 1 - General Ulcer Measurement Start: 06/18/19 12:21 Freq: Status: Active Protocol: Activity Type Activity Date Activity User E-Sign Co-Sign Detail Recorded Client Recorded Date Recorded By Document 06/18/19 12:21 [facility] [id number] 06/18/19 12:25 [facility] 06/18/19 12:21 Wound Center Nurse 1 [Ulcer Assessment] #1 right index finger -Combined with other wound No -Current Size (cm) - Length 0.1 -Current Size (cm) - Width 0.1 -Current Size (cm) - Depth 0.1 -Total Square Cm 0.01 -Epithelialization Large 67-100% -Tunneling No -Undermining/Tunneling No -Circular Undermining No -Texture (Ronda-wound Skin Appearance) Assessed, Scarring -Moisture (Ronda-wound Skin Appearance Assessed,Dry/ ) Scaly -Color (Ronda-wound Skin Appearance) Assessed -Temperature (Ronda-wound Skin No Abnormality Appearance) (Pt Warm) -Tenderness on Palpation (Ronda-wound No Skin Appearance) - Nurse 2 - General Ulcer CM Notes Start: 06/18/19 12:21 Freq: Status: Active Protocol: Activity Type Activity Date Activity User E-Sign Co-Sign Detail Recorded Client Recorded Date Recorded By Document 06/18/19 12:44 [id number] 06/18/19 12:45 06/18/19 12:44 Wound Center Nurse 2 [Procedure/Treatment] -Correct Patient No -Correct Side, Site, Position No -Correct Procedure No -Procedure Performed No -Post Debridement Size (cm) - Length 0 -Post Debridement Size (cm) - Width 0 -Post Debridement Size (cm) - Depth 0 -Total Square Cm 0 -Wound/Ulcer Outcome Healed- Epithelialized [See Physician Procedure note for Specifics] Pain Scale: 0-10 Numeric [Pain] -Is Patient Pain Free? Yes Neurological: Cranial nerves II-XII grossly intact Psych/Mental Status: Normal Affect, Appropriate Debridement Note Post-Debridement Measurements/Treatment - Nurse 2 - General Ulcer CM Notes Start: 06/18/19 12:21 Freq: Status: Active Protocol: Activity Type Activity Date Activity User E-Sign Co-Sign Detail Recorded Client Recorded Date Recorded By Document 06/18/19 12:44 [id number] 06/18/19 12:45 06/18/19 12:44 Wound Center Nurse 2 #1 right index finger -Correct Patient No -Correct Side, Site, Position No -Correct Procedure No -Procedure Performed No -Post Debridement Size (cm) - Length 0 -Post Debridement Size (cm) - Width 0 -Post Debridement Size (cm) - Depth 0 -Total Square Cm 0 -Wound/Ulcer Outcome Healed- Epithelialized Pain Scale: 0-10 Numeric Is Patient Pain Free? Yes Wound debrided: #1 Right index finger tip. Laterality: Right Wound Grade/Stage: 3. No debridement was completed today - the wound remains healed. Assessment/Plan Assessment: 1. Contact with power drill as cause of acciental injury to right index finger involving the nail and nail bed. 2. Open wound right index finger with damage to nail, healed. 3. Nail bed injury right index finger, healed. 4. Smoker. 5. Paresthesias right index finger tip. improved. Plan: The right index finger tip remains healed. The nail bed is healed. E ncourage range of motion exercises to minimize stiffness. When she bumps her right index finger tip, it is more tolerable. Minimal zingers are noted. She thinks she can have her restrictions removed at work and resume full duty. Continue desensitization techniques to help with the occasional zinger that is much more tolerable than at her last visit. With the improvement, there is no need for Neurontin at this time. Encouraged patient to stop smoking as it may have deleterious effects on wound healing. Discussed with the patient that the nail may develop a deformity during the healing process. There is also a chance in the future of developing osteomyelitis. There was no fracture on x- ray. If increasing pain and redness and swelling develop in the future, will evaluate for osteomyelitis that would need antibiotics and possible operative debridement and possible tip amputation. This scenario would be related to her initial work related injury. She is at increased risk of suboptimal healing because of her history of smoking and her history of arthritis that necessitates the use of Methotrexate. She is aware of that possibility and voices understanding. Followup on an as needed basis. Code Visit Office Visits / Consults: 59917 OV L3 Est - ICD-10 - S61.310A, W29.8xxA, S69.91xA, F17.200
== END 2019-06-30 23:59 ==
LOC: WC 09:51
PROVIDERS: Family Provider Family Medicine; PCP Family Medicine; Visit Provider Nurse Practitioner
DX: Z09 Encounter for follow-up examination after completed treatment for conditions other than malignant neoplasm (principal)
CPT/HCPCS: 99212; G0463

== ENCOUNTER → 2019-09-05 13:34 | Outpatient (CLI) | payer OTHER, SELFPAY ==
[2019-09-05 17:42] LABS: Absolute Lymphocyte Count 2.65 X10^3/uL (0.83-4.51); Absolute Neutrophil Count 6.9 X10^3/uL (2.0-7.7); Basophil# 0.07 X10^3/uL; Basophil% 0.6 % (0-1); Eosinophils% 1.8 % (0-5); Hematocrit 42.3 % (37-47); Lymphocyte # 2.65 X10^3/ul (4.0); Lymphocyte % 24.2 % (19-41); Mean Corp Hgb Conc 33.1 g/dL (32-36); Mean Corpuscular Hgb 33.3 pg (27.0-32.0); Mean Corpuscular Volume 100.5 fL (81-99); Mean Platelet Vol. 9.6 fl (6.2-12.0); Monocyte# 1.01 X10^3/uL; Monocyte% 9.2 % (0-10); NRBC Flagged by Analyzer 0 % (0-5); Neutrophil # 6.91 X10^3/uL (2.7-7.7); Neutrophil % 63.1 % (47-70); Platelet Count 330 K/mm3 (150-450); RBC Distribution Width CV 13.2 % (11.6-14.6); RBC Distribution Width SD 48.5 fl (35.1-43.9); Red Blood Count 4.21 M/mm3 (4.2-5.4)
[2019-09-05 17:50] LABS: ALB/GLOB Ratio 0.9 RATIO (0.9-2.4); AST(SGOT) 13 U/L (15-37); Alanine Aminotransfer ALT/SGPT 35 U/L (13-56); Albumin, Serum 3.4 g/dL (3.2-5.0); Alkaline Phosphatase 97 U/L (45-117); Anion Gap 5 (5-15); BUN 13 mg/dL (7-18); BUN/Creat Ratio 16.3 RATIO (10-20); Calcium,Total 9.6 mg/dL (8.5-10.1); Chloride 110 mmol/L (98-107); EST Glomerular Filtration Rate 80 mL/min (>60); Est Glom Filt Rate - Afr Amer 96 mL/min (>60); Globulin 3.7 g/dL (2.2-4.2); Glucose 88 mg/dL (74-106); Potassium 4.1 mmol/L (3.5-5.1); Protein, Total 7.1 g/dL (6.4-8.2); Sodium Level 139 mmol/L (136-145)
== END ==
PROVIDERS: PCP Family Medicine; Referring Provider Internal Medicine Rheumatology; Visit Provider Internal Medicine Rheumatology
DX: L40.59 Other psoriatic arthropathy (principal); L40.8 Other psoriasis; I10 Essential (primary) hypertension; M79.7 Fibromyalgia; M18.12 Unilateral primary osteoarthritis of first carpometacarpal joint, left hand; K21.9 Gastro-esophageal reflux disease without esophagitis; G43.909 Migraine, unspecified, not intractable, without status migrainosus; Z79.899 Other long term (current) drug therapy
CPT/HCPCS: 36415; 80053; 85025

== ENCOUNTER → 2020-01-10 13:35 | Outpatient (CLI) | payer OTHER, SELFPAY ==
[2020-01-10 15:28] LABS: Absolute Lymphocyte Count 2.59 X10^3/uL (0.83-4.51); Absolute Neutrophil Count 9.3 X10^3/uL (2.0-7.7); Basophil# 0.07 X10^3/uL; Basophil% 0.5 % (0-1); Eosinophil# 0.16 X10^3/uL; Eosinophils% 1.2 % (0-5); Hematocrit 39.8 % (37-47); Hemoglobin 12.8 g/dL (12.0-15.0); Lymphocyte # 2.59 X10^3/ul (4.0); Lymphocyte % 19.5 % (19-41); Mean Corp Hgb Conc 32.2 g/dL (32-36); Mean Corpuscular Volume 102.6 fL (81-99); Mean Platelet Vol. 9.2 fl (6.2-12.0); Monocyte# 0.89 X10^3/uL; Monocyte% 6.7 % (0-10); NRBC Flagged by Analyzer 0 % (0-5); Neutrophil # 9.33 X10^3/uL (2.7-7.7); Neutrophil % 70.4 % (47-70); Platelet Count 318 K/mm3 (150-450); RBC Distribution Width CV 14.3 % (11.6-14.6); Red Blood Count 3.88 M/mm3 (4.2-5.4); White Blood Count 13.3 K/mm3 (4.4-11.0)
[2020-01-10 15:37] LABS: ALB/GLOB Ratio 0.8 RATIO (0.9-2.4); AST(SGOT) 13 U/L (15-37); Alanine Aminotransfer ALT/SGPT 25 U/L (13-56); Albumin, Serum 3.2 g/dL (3.2-5.0); Alkaline Phosphatase 102 U/L (45-117); Anion Gap 9 (5-15); BUN 17 mg/dL (7-18); BUN/Creat Ratio 17.9 RATIO (10-20); Calcium,Total 8.5 mg/dL (8.5-10.1); Chloride 106 mmol/L (98-107); Creatinine, Serum 0.95 mg/dL (0.55-1.02); EST Glomerular Filtration Rate 65 mL/min (>60); Est Glom Filt Rate - Afr Amer 78 mL/min (>60); Globulin 3.8 g/dL (2.2-4.2); Glucose 126 mg/dL (74-106); Potassium 3.8 mmol/L (3.5-5.1); Sodium Level 139 mmol/L (136-145)
== END ==
PROVIDERS: PCP Family Medicine; Referring Provider Internal Medicine Rheumatology; Visit Provider Internal Medicine Rheumatology
DX: L40.59 Other psoriatic arthropathy (principal); M79.7 Fibromyalgia; M18.12 Unilateral primary osteoarthritis of first carpometacarpal joint, left hand; L40.8 Other psoriasis; K21.9 Gastro-esophageal reflux disease without esophagitis; I10 Essential (primary) hypertension; G43.909 Migraine, unspecified, not intractable, without status migrainosus; Z79.899 Other long term (current) drug therapy
CPT/HCPCS: 36415; 80053; 85025

== ENCOUNTER → 2020-12-24 06:05 | Outpatient (CLI) | payer OTHER, SELFPAY ==
[2020-12-11 16:17] VITALS: BMI 52.0
--- NOTE | 2020-12-24 09:05 | STRESSREP_ITS ---
Stress Test Report Date: 12-24-2020 Procedure: Pharmacologic stress nuclear imaging study Indications: Shortness of breath/dyspnea on exertion Consent: Per the patient Procedure: The patient underwent pharmacologic (Regadenoson 0.4mg ) evaluation with a peak heart rate of 121 beats per minute (73%predicted maximal heart rate) and a peak blood pressure of 138/62 mmHg. The baseline ECG demonstrated normal sinus rhythm. The peak pharmacologic ECG demonstrated no obvious ECG changes. There were no cardiac dysrhythmias pretest, during pharmacologic infusion, or recovery. There was no complaint of chest discomfort during pharmacologic infusion or recovery. The examination was discontinued secondary to completion of protocol. Impression: 1. Pharmacologic (Regadenoson) evaluation 2. Peak pharmacologic ECG with no obvious ECG changes. 3. There were no cardiac dysrhythmias pretest, during pharmacologic infusion, or recovery. 4. Nuclear images pending Myocardial perfusion imaging study: Technique: The patient was injected with 14.9 millicuries of technetium 99m Cardiolite and subsequently rest SPECT Cardiolite nuclear imaging was obtained in the horizontal long, vertical long, and short axis views. The patient underwent pharmacologic (Regadenoson) evaluation with a peak heart rate of 121 beats per minute (73% percent predicted maximal heart rate) and a peak blood pressure of 138/62 mmHg. The patient was injected with 44.7 millicuries of technetium 99m Cardiolite and subsequently stress SPECT Cardiolite nuclear imaging was obtained in the horizontal long, vertical long, and short axis views. A gated Cardiolite study at peak stress was obtained. Interpretation: Rest and stress SPECT Cardiolite nuclear imaging status post realignment, normalization, and attenuation correction demonstrate the appearance of body motion during image acquisition and at rest the appearance of relative uniform tracer uptake. Status post stress there is notation of diminished tracer uptake in portions of the mid to distal anterior and anteroapical segments. There is end systolic thickening and brightening. The gated Cardiolite study demo nstrates myocardial thickening and inward wall motion. The reported LVEF is 69%. Impression: 1. Rest and stress SPECT her nuclear imaging demonstrate an element of body motion during image acquisition and post-rest changes concerning for an element of diminished myocardial perfusion/tracer uptake in portions of the mid to distal anterior and anteroapical segments potentially compatible with stress- induced myocardial ischemia, however, based upon the underlying body motion during image acquisition an element of shifting soft tissue attenuation/artifact cannot necessarily be excluded. 2. The gated Cardiolite study reports an LVEF of 69%. This note was generated with [employer] software. It may contain incorrect words, spelling, and punctuation that were not noted in checking the note before signing.
== END ==
PROVIDERS: PCP Family Medicine; Referring Provider Internal Medicine Cardiovascular Disease; Visit Provider Internal Medicine Cardiovascular Disease
DX: R06.00 Dyspnea, unspecified (principal); E78.1 Pure hyperglyceridemia; I10 Essential (primary) hypertension
CPT/HCPCS: 78452; 93017; A9500; A4216; J2785

== ENCOUNTER 2021-01-20 08:50 | Day surgery (SDC) | payer MEDICAID, SELFPAY ==
[2020-12-11 16:17] VITALS: BMI 52.0
--- NOTE | 2021-01-13 14:05 | RAD_ITS ---
INDICATION: Dyspnea on Exertion EXAMINATION/TECHNIQUE: X-RAY - XR Chest 2 Views COMPARISON: None. FINDINGS: The lungs are clear. Tortuous and calcified thoracic aorta. The heart is not enlarged. No pleural effusion or pneumothorax. Degenerative changes of the thoracic spine. RAD/Chest PA and Lateral IMPRESSION: No acute radiographic abnormalities. Electronically Signed: Diego Navarro MD at 21:00 EDT Tel , Service support ,
[2021-01-13 15:11] LABS: Absolute Lymphocyte Count 2.53 X10^3/uL (0.83-4.51); Absolute Neutrophil Count 7.2 X10^3/uL (2.0-7.7); Basophil# 0.05 X10^3/uL; Basophil% 0.5 % (0-1); Eosinophil# 0.16 X10^3/uL; Eosinophils% 1.5 % (0-5); Hematocrit 44.1 % (37-47); Hemoglobin 14.6 g/dL (12.0-15.0); Lymphocyte # 2.53 X10^3/ul (0.83-4.51); Lymphocyte % 23.1 % (19-41); Mean Corp Hgb Conc 33.1 g/dL (32-36); Mean Corpuscular Hgb 32.7 pg (27.0-32.0); Mean Corpuscular Volume 98.7 fL (81-99); Mean Platelet Vol. 9.3 fl (6.2-12.0); Monocyte# 0.91 X10^3/uL; Monocyte% 8.3 % (0-10); NRBC Flagged by Analyzer 0 % (0-5); Neutrophil % 65.8 % (47-70); Platelet Count 317 K/mm3 (150-450); RBC Distribution Width SD 46.5 fl (35.1-43.9); Red Blood Count 4.47 M/mm3 (4.2-5.4); White Blood Count 10.9 K/mm3 (4.4-11.0)
[2021-01-13 15:31] LABS: Microalbumin,Random Urine 9.4 mg/L (NO RANGE EST.); Microalbumin:Creatinine Ratio 9.4 mg/g CRE (<30 mg/g CRE)
[2021-01-13 15:32] LABS: Erythrocyte Sedimentation Rate 44 mm/hr (0-30)
[2021-01-13 15:33] LABS: International Normalized Ratio 1.1; Partial Thromboplast Time 33.1 Seconds (24.1-36.2); Prothrombin Time (Protime)PT. 13.1 SECONDS (11.7-14.9)
[2021-01-13 15:42] LABS: Vitamin D,25 Hydroxy 33.2 ng/mL
[2021-01-13 15:44] LABS: ALB/GLOB Ratio 0.9 RATIO (0.9-2.4); AST(SGOT) 24 U/L (15-37); Alanine Aminotransfer ALT/SGPT 29 U/L (13-56); Albumin, Serum 3.5 g/dL (3.2-5.0); Alkaline Phosphatase 104 U/L (45-117); Anion Gap 7 (5-15); BUN 13 mg/dL (7-18); BUN/Creat Ratio 14.7 RATIO (10-20); Calcium,Total 9.2 mg/dL (8.5-10.1); Chloride 108 mmol/L (98-107); Creatinine, Serum 0.88 mg/dL (0.55-1.02); EST Glomerular Filtration Rate 70 mL/min (>60); Est Glom Filt Rate - Afr Amer 85 mL/min (>60); Globulin 3.8 g/dL (2.2-4.2); Glucose 102 mg/dL (74-106); Potassium 4.1 mmol/L (3.5-5.1); Protein, Total 7.3 g/dL (6.4-8.2); Sodium Level 139 mmol/L (136-145)
[2021-01-13 15:50] LABS: Uric Acid 7.6 mg/dL (2.6-6.0)
[2021-01-19 07:48] VITALS: BMI 51.9
--- NOTE | 2021-01-19 08:52 | HP.PCM_ITS ---
Documented by User: Austin Trotter NP, MYSQL DBA-C 01/19/21 08:56 History and Physical Date of Admission: 01/20/21 This is a 55-year-old white female who presents today to the [facility] for a left heart catheterization based upon concerns of shortness of breath/dyspnea on exertion and recent stress test results. She states that a few years ago she weighed approximately 125 pounds. She states after a work related injury very evolving around a back injury she has been debilitated. She states that she gets burning pain in her thighs at times. She notes at times she drags her feet. She states when these events occur she can feel that she cannot go on and she will have to stop and sit and rest before she falls over. Based upon these limits she states she has gained all of her weight. As she has gained her weight she feels she has become more short of breath and dyspneic especially with any activity. She underwent a stress test on 12/24/2020 showed that an element of diminished myocardial perfusion/tracer uptake in portions of the mid to distal anterior and anteroapical segments potentially compatible with stress-induced myocardial ischemia, however, based upon the underlying body motion during image acquisition an element of shifting soft tissue attenuation/artifact cannot necessarily be exclude. Thus, she will proceed with heart catheterization to assess further. She does not describe ongoing classic angina pectoris with respect to chest discomfort or pain. She has not had ongoing issues of orthopnea or PND. There has been no syncopal events. She denies any palpitations or rapid heart rate sensations. She had an ECG performed in the office on 12/11/2020. She was noted to have sinus rhythm/sinus tachycardia with poor R wave progression. There were no other acute ECG changes. She states she was told by her other physicians that she requires a nontreadmill stress test to further evaluate her symptoms for any obvious underlying cardiovascular disease. In the meantime she states she is waiting for her disability physician to be in contact with her primary care physician regarding her ongoing evaluation, radiologic findings that she had performed, and the need for additional studies of her neuromuscular system for concerns of a pinched nerve that would lead to her lower extremity symptoms. 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 Accompanied by: Self Allergies [id number] [From Skyrizi] Allergy (Verified 12/11/20 16:21) Swelling secukinumab [From Cosentyx] Allergy (Verified 12/11/20 16:21) Swelling venlafaxine HCl [From Effexor] Allergy (Verified 12/11/20 16:21) Vomiting apremilast [From Otezla] Adverse Reaction (Severe, Verified 12/11/20 16:21) GI bleeding Medications See EMR [facility] Medical History Contact with powered drill as cause of accidental injury Dyspnea on exertion Essential hypertension Fatty liver GERD (gastroesophageal reflux disease) Hypertriglyceridemia Injury of nail bed of finger of right hand Laceration of right index finger w/o foreign body with damage to nail Open wound of right index finger with damage to nail Smoker Surgical History (Updated 10/13/20 @ 16:36 by Bita Spivey) History of hysterectomy History of tonsillectomy Family History (Updated 12/11/20 @ 16:24 by Bita Spivey) Father Diabetes Myocardial infarction, Onset Age: 50 Mother Hypertension Social History (Updated 12/11/20 @ 16:24 by Bita Spivey) Smoking Status: Current every day smoker alcohol intake: current details: Rare substance use type: does not use caffeine: Yes Type: carbonated beverages Number of servings: 3 ROS Const Const: Positive for fatigue and weakness (increased); Negative for frequent falls, excessive sweating, weight gain or weight loss Eyes Eyes: Negative for transient loss of vision, blurry vision or change in vision ENT ENT: Negative for dizziness or balance problems Cardio Chest Pain: Yes (x1 episode last September 2019) Character: sharp Location: right chest Palpitations: No Edema: Bilateral (occasional to bilat LE) Muscle aches with walking: None Resp Respiratory: Positive for SOB with activity (minimal exertion); Negative for SOB at rest GI GI: Negative vomiting or vomiting blood/hematemesis : Negative for hematuria Musc Musc: Positive for muscle aches/ myalgia (generalized; red hot pain in Rt thigh occasional); Negative for muscle weakness, joint pain or balance problems Skin Skin: Negative non-healing lesions or rash Neuro Neuro: Positive for lightheadedness (with burning in Rt thigh) and weakness (increased); Negative for dizziness, orthostatic symptoms, frequent falls or blurry vision Kenny Hematologic/Lymphatic: Negative for easy bleeding Endo Endo: Positive for fatigue; Negative for excessive sweating Psych Psych: Negative for anxiety or depression Allergy Allergy/Immunology: Negative for hives and Negative for rash Cardiology Exam Const Appearance: cooperative, healthy appearing, comfortable, no acute distress, well developed and well groomed Nutritional Appearance: obese Orientation: alert, awake and oriented x3 Head Head: normal to inspection, normocephalic and atraumatic Ears: hearing grossly normal bilaterally Nose: external nose normal Face and Sinus: face symmetric Eyes Eyelids: eyelids normal Conjunctivae: conjunctivae normal Pupils: PERRL EOM: EOM intact bilaterally Neck Neck: normal visual inspection and full ROM Carotids: normal carotid upstroke Chest Chest inspection: normal inspection of the chest, symmetric chest movement and normal respiratory effort Auscultation: Bilateral: Clear to Auscultation Cardio Palpation: normal PMI Rate: regular rate Rhythm: regular rhythm Heart sounds: S1 normal and S2 normal GI GI: normal to inspection, soft, bowel sounds present and obese Neuro General: patient alert, patient awake, patient oriented x3 and moves all extremities Skin Skin: no rashes or lesions noted Extremities Pulses: Normal: Right Radial Pulse and Left Radial Pulse Lower Extremity Edema: None: Bilateral Psych Psychological: normal affect Assessment and Plan Assessment and Plan (1) Dyspnea on exertion: Status: Acute She does have shortness of breath and dyspnea on exertion. She does have some cardiovascular risk factors. On account of her symptoms and risk factors she underwent a stress test on 12/24/2020 that was considered to be abnormal. Thus, she will proceed with heart catheterization to assess further. Based on results, further recommendation be made. (2) Hypertriglyceridemia: Status: Acute She will continue to follow with her PCP for her hyperlipidemia. SUPPLEMENTAL INFORMATION Stress Test Report Date: 12-24-2020 Procedure: Pharmacologic stress nuclear imaging study Indications: Shortness of breath/dyspnea on exertion Consent: Per the patient Procedure: The patient underwent pharmacologic (Regadenoson 0.4mg ) evaluation with a peak heart rate of 121 beats per minute (73%predicted maximal heart rate) and a peak blood pressure of 138/62 mmHg. The baseline ECG demonstrated normal sinus rhythm. The peak pharmacologic ECG demonstrated no obvious ECG changes. There were no cardiac dysrhythmias pretest, during pharmacologic infusion, or recovery. There was no complaint of chest discomfort during pharmacologic infusion or recovery. The examination was discontinued secondary to completion of protocol. Impression: 1. Pharmacologic (Regadenoson) evaluation 2. Peak pharmacologic ECG with no obvious ECG changes. 3. There were no cardiac dysrhythmias pretest, during pharmacologic infusion, or recovery. 4. Nuclear images pending Myocardial perfusion imaging study: Technique: The patient was injected with 14.9 millicuries of technetium 99m Cardiolite and subsequently rest SPECT Cardiolite nuclear imaging was obtained in the horizontal long, vertical long, and short axis views. The patient underwent pharmacologic (Regadenoson) evaluation with a peak heart rate of 121 beats per minute (73% percent predicted maximal heart rate) and a peak blood pressure of 138/62 mmHg. The patient was injected with 44.7 millicuries of technetium 99m Cardiolite and subsequently stress SPECT Cardiolite nuclear imaging was obtained in the horizontal long, vertical long, and short axis views. A gated Cardiolite study at peak stress was obtained. Interpretation: Rest and stress SPECT Cardiolite nuclear imaging status post realignment, normalization, and attenuation correction demonstrate the appearance of body motion during image acquisition and at rest the appearance of relative uniform tracer uptake. Status post stress there is notation of diminished tracer uptake in portions of the mid to distal anterior and anteroapical segments. There is end systolic thickening and brightening. The gated Cardiolite study demonstrates myocardial thickening and inward wall motion. The reported LVEF is 69%. Impression: 1. Rest and stress SPECT her nuclear imaging demonstrate an element of body motion during image acquisition and post-rest changes concerning for an element of diminished myocardial perfusion/tracer uptake in portions of the mid to distal anterior and anteroapical segments potentially compatible with stress- induced myocardial ischemia, however, based upon the underlying body motion during image acquisition an element of shifting soft tissue attenuation/artifact cannot necessarily be excluded. 2. The gated Cardiolite study reports an LVEF of 69%. Echocardiogram from 02/07/2020: Impressions CONCLUSIONS: ?Tachycardia difficult exam due to body habitus. ?Exam location: Chest pain ?The left ventricle is small. Left ventricular systolic function is normal. EF equals 65% -5% (2D biplane) grade 1 left ventricular diastolic dysfunction. ?The right ventricle is normal in size. Right ventricular systolic function is normal. ?There are no significant valvular abnormalities. ?Technically difficult study, Definity not available. ?There is a technically difficult study due to limited acoustic windows and is of moderate diagnostic evidence. ?The patient has not had a prior [facility] echocardiographic exam for comparison. She had an ECG performed on 02-16-2018 through the [facility] system. It was reported as normal sinus rhythm. It appears she had a remote treadmill stress test performed through the [facility] system on 02-16-2018. At that time she was noted to have normal near maximal treadmill stress ECG which was considered clinically negative for ischemia. There was a comment that she had brief runs of SVT and occasional PVCs/couplets during her exercise. She had poor functional capacity. The surgeon/proceduralist and patient have discussed in detail the risk of exposure to and/or potential harm posed by the COVID-19 virus with having a surgery/procedure at this time versus the risk of? delaying the surgery/procedure. It is not possible to know either the risk of delaying the surgery or procedure or chance of getting an infection with perfect accuracy, but a joint decision was made between the patient and the surgeon/proceduralist ?to proceed at this time with the scheduled surgery/procedure as indicated on the consent form. Documented by User: Dr. Zaki Hernandez MD 01/20/21 07:36 Assessment & Plan Assessment/Plan (1) Abnormal stress test: PLAN: I have re-examined the patient. There are no clinical changes since date of exam.
--- NOTE | 2021-01-19 16:59 | HP.PCM_ITS ---
History and Physical Date of Admission: 01/20/21 [facility] [id number] [place] [address] [phone] OFFICE VISITDate of Service: 12/11/20 MR#:[id number]: REJI REYNOLDS #:[id number]:1965 Provider:Dr. Zaki Hernandez, MDAge/Sex: 55/F Locat ion:BMS.WHGStatus:Signed HPI HPI History of Present Illness Details: This is a 55-year-old white female who presents today for outpatient cardiovascular consultation based upon concerns of shortness of breath/dyspnea on exertion. She states that a few years ago she weighed approximately 125 pounds. She states after a work related injury very evolving around a back injury she has been debilitated. She states that she gets burning pain in her thighs at times. She notes at times she drags her feet. She states when these events occur she can feel that she cannot go on and she will have to stop and sit and rest before she falls over. Based upon these limits she states she has gained all of her weight. As she has gained her weight she feels she has become more short of breath and dyspneic especially with any activity. She does not describe ongoing classic angina pectoris with respect to chest discomfort or pain. She has not had ongoing issues of orthopnea or PND. There has been no syncopal events. She had an ECG performed on 02-16-[address] [facility] system. It was reported as normal sinus rhythm. Also through the [facility] system she had a transthoracic echocardiogram performed on 02-07-2020. The left ventricle was reported as normal systolic function with an LVEF of 66% with no significant valvular abnormalities. It appears she had a remote treadmill stress test performed through the [facility] system on 02-16-2018. At that time she was noted to have normal near maximal treadmill stress ECG which was considered clinically negative for ischemia. There was a comment that she had brief runs of SVT and occasional PVCs/couplets during her exercise. She had poor functional capacity. She denies any palpitations or rapid heart rate sensations. She had an ECG performed in the office today. She was noted to have sinus rhythm/sinus tachycardia with poor R wave progression. There were no other acute ECG changes. She states she was told by her other physicians that she requires a nontreadmill stress test to further evaluate her symptoms for any obvious underlying cardiovascular disease. In the meantime she states she is waiting for her disability physician to be in contact with her primary care physician regarding her ongoing evaluation, radiologic findings that she had performed, and the need for additional studies of her neuromuscular system for concerns of a pinched nerve that would lead to her lower extremity symptoms. Intake Vital Signs 12/11/20 16:17 Height 5 ft 5 in Weight: 312 lb 5 oz BMI 52.0 BP 138/78 H Blood Pressure Location Lt brachial Position Sitting Respiration 18 Pulse 112 H Pulse Source Auscultation Intake Visit Reasons: GIBSON/Ref. [facility] Clerical Transcriber Required: No Accompanied by: Self Allergies risankizumab-rzaa [From Skyrizi] Allergy (Verified 12/11/20 16:21) Swelling secukinumab [From Cosentyx] Allergy (Verified 12/11/20 16:21) Swelling venlafaxine HCl [From Effexor] Allergy (Verified 12/11/20 16:21) Vomiting apremilast [From Otezla] Adverse Reaction (Severe, Verified 12/11/20 16:21) GI bleeding Medications lisinopril 30 mg PO DAILY 03/15/18 [History Confirmed 12/11/20] omeprazole 20 mg PO DAILY 03/15/18 [History Confirmed 12/11/20] acetaminophen 500 mg tablet 500 mg PO Q8H PRN tab 10/13/20 [History Confirmed 12/11/20] albuterol sulfate 90 mcg/actuation aerosol inhaler 2 puff INHALATION Q4H PRN g 10/13/20 [History Confirmed 12/11/20] bupropion HCl 300 mg 24 hr tablet, extended release 300 mg PO QAM 10/13/20 [History Confirmed 12/11/20] duloxetine 60 mg capsule,delayed release 60 mg PO DAILY 10/13/20 [History Confirmed 12/11/20] folic acid 1 mg tablet 1 mg PO DAILY 10/13/20 [History Confirmed 12/11/20] hydroxyzine HCl 25 mg tablet 25 mg PO DAILY PRN tab 10/13/20 [History Confirmed 12/11/20] metoprolol succinate 50 mg tablet,extended release 24 hr 50 mg PO DAILY 10/13/20 [History Confirmed 12/11/20] spironolactone 25 mg tablet 25 mg PO DAILY 10/13/20 [History Confirmed 12/11/20] sumatriptan succinate 100 mg tablet See Rx Instructions PO .COMPLEX 10/13/20 [History Confirmed 12/11/20] cholecalciferol (vitamin D3) 50 mcg (2,000 unit) capsule 50 mcg PO DAILY 12/11/20 [History Confirmed 12/11/20] duloxetine 30 mg capsule,delayed release 30 mg PO DAILY 12/11/20 [History Confirmed 12/11/20] PFSH Medical History Contact with powered drill as cause of accidental injury Dyspnea on exertion Essential hypertension Fatty liver GERD (gastroesophageal reflux disease) Hypertriglyceridemia Injury of nail bed of finger of right hand Laceration of right index finger w/o foreign body with damage to nail Open wound of right index finger with damage to nail Smoker Surgical History (Updated 10/13/20 @ 16:36 by Bita Spivey) History of hysterectomy History of tonsillectomy Family History (Updated 12/11/20 @ 16:24 by Bita Spivey) Father Diabetes Myocardial infarction, Onset Age: 50 Mother Hypertension Social History (Updated 12/11/20 @ 16:24 by Bita Spivey) Smoking Status: Current every day smoker alcohol intake: current details: Rare substance use type: does not use caffeine: Yes Type: carbonated beverages Number of servings: 3 ROS Const Const: Positive for fatigue and weakness (increased); Negative for frequent falls, excessive sweating, weight gain or weight loss Eyes Eyes: Negative for transient loss of vision, blurry vision or change in vision ENT ENT: Negative for dizziness or balance problems Cardio Chest Pain: Yes (x1 episode last September 2019) Character: sharp Location: right chest Palpitations: No Edema: Bilateral (occasional to bilat LE) Muscle aches with walking: None Resp Respiratory: Positive for SOB with activity (minimal exertion); Negative for SOB at rest GI GI: Negative vomiting or vomiting blood/hematemesis : Negative for hematuria Musc Musc: Positive for muscle aches/ myalgia (generalized; red hot pain in Rt thigh occasional); Negative for muscle weakness, joint pain or balance problems Skin Skin: Negative non-healing lesions or rash Neuro Neuro: Positive for lightheadedness (with burning in Rt thigh) and weakness (increased); Negative for dizziness, orthostatic symptoms, frequent falls or blurry vision Kenny Hematologic/Lymphatic: Negative for easy bleeding Endo Endo: Positive for fatigue; Negative for excessive sweating Psych Psych: Negative for anxiety or depression Allergy Allergy/Immunology: Negative for hives and Negative for rash Cardiology Exam Const Appearance: cooperative, healthy appearing, comfortable, no acute distress, well developed and well groomed Nutritional Appearance: obese Orientation: alert, awake and oriented x3 Head Head: normal to inspection, normocephalic and atraumatic Ears: hearing grossly normal bilaterally Nose: external nose normal Face and Sinus: face symmetric Eyes Eyelids: eyelids normal Conjunctivae: conjunctivae normal Pupils: PERRL EOM: EOM intact bilaterally Neck Neck: normal visual inspection and full ROM Carotids: normal carotid upstroke Chest Chest inspection: normal inspection of the chest, symmetric chest movement and normal respiratory effort Auscultation: Bilateral: Clear to Auscultation Cardio Palpation: normal PMI Rate: regular rate Rhythm: regular rhythm Heart sounds: S1 normal and S2 normal GI GI: normal to inspection, soft, bowel sounds present and obese Neuro General: patient alert, patient awake, patient oriented x3 and moves all extrem ities Skin Skin: no rashes or lesions noted Extremities Pulses: Normal: Right Radial Pulse and Left Radial Pulse Lower Extremity Edema: None: Bilateral Psych Psychological: normal affect Assessment and Plan Assessment and Plan (1) Dyspnea on exertion: Status: Acute Orders: Orders: 12 Lead EKG performed by [facility] Today 12 Lead EKG performed by [facility] Today Nuclear Stress Test - Chemical Today Plan - Dr. Zaki Hernandez MD: She does have shortness of breath and dyspnea on exertion. She does have some cardiovascular risk factors. Is unclear whether this is truly cardiac with respect to CAD and myocardial ischemia versus noncardiac including a contribution from her diminished functional capacity and her unfortunate obesity. From a cardiac standpoint it would not be unreasonable to proceed with a pharmacologic stress nuclear imaging study to further evaluate for any obvious myocardial ischemia that would warrant further evaluation. If this is unremarkable then perhaps she does not require additional cardiac studies and can proceed with further noncardiac evaluation. (2) Hypertriglyceridemia: Status: Acute Orders: Orders: Nuclear Stress Test - Chemical Today Plan - Dr. Zaki Hernandez MD: She will continue to follow with her PCP for her hyperlipidemia. (3) Essential hypertension: Status: Chronic Orders: Orders: 12 Lead EKG performed by [facility] Today 12 Lead EKG performed by [facility] Today Nuclear Stress Test - Chemical Today Plan - Dr. Zaki Hernandez MD: She is also following with her PCP for her hypertension. Plan Details Additional Comments: The above was discussed with her and she was agreeable to this approach. Thank you for allowing me to participate in the care of your patient. Please don't hesitate to call if any issues arise. This note was generated using a voice recognition system and there may be incorrect words, spelling or punctuation that were not noted when reviewing the office note prior to saving. Follow Up: 3 Months (PFM) Coding Level of Care Code Off vis,new,level 3 Diagnoses Dyspnea on exertion R06.00 Hypertriglyceridemia E78.1 Essential hypertension I10 Coding Level of Care Code Off vis,new,level 3 Diagnoses Dyspnea on exertion R06.00 Hypertriglyceridemia E78.1 Essential hypertension I10 Supplemental Info Supplemental Information Labs: No Data to Display Diagnostics: Electrocardiogram Pulmonary: No Data to Display 12/11/20 1022<Electronically signed by Zaki Hernandez MD>Date Zaki Hernandez MD Cosigner Signature:Date (if applicable) CC: Dr. Raymundo Guidry MD ~ I have examined the patient the following changes are noted: The patient underwent further evaluation with a pharmacologic stress nuclear imaging study. The results are as noted below. Stress Test Report Date: 12-24-2020 Procedure: Pharmacologic stress nuclear imaging study Indications: Shortness of breath/dyspnea on exertion Consent: Per the patient Procedure: The patient underwent pharmacologic (Regadenoson 0.4mg ) evaluation with a peak heart rate of 121 beats per minute (73%predicted maximal heart rate) and a peak blood pressure of 138/62 mmHg. The baseline ECG demonstrated normal sinus rhythm. The peak pharmacologic ECG demonstrated no obvious ECG changes. There were no cardiac dysrhythmias pretest, during pharmacologic infusion, or recovery. There was no complaint of chest discomfort during pharmacologic infusion or recovery. The examination was discontinued secondary to completion of protocol. Impression: 1. Pharmacologic (Regadenoson) evaluation 2. Peak pharmacologic ECG with no obvious ECG changes. 3. There were no cardiac dysrhythmias pretest, during pharmacologic infusion, or recovery. 4. Nuclear images pending Myocardial perfusion imaging study: Technique: The patient was injected with 14.9 millicuries of technetium 99m Cardiolite and subsequently rest SPECT Cardiolite nuclear imaging was obtained in the horizontal long, vertical long, and short axis views. The patient underwent pharmacologic (Regadenoson) evaluation with a peak heart rate of 121 beats per minute (73% percent predicted maximal heart rate) and a peak blood pressure of 138/62 mmHg. The patient was injected with 44.7 millicuries of technetium 99m Cardiolite and subsequently stress SPECT Cardiolite nuclear imaging was obtained in the horizontal long, vertical long, and short axis views. A gated Cardiolite study at peak stress was obtained. Interpretation: Rest and stress SPECT Cardiolite nuclear imaging status post realignment, normalization, and attenuation correction demonstrate the appearance of body motion during image acquisition and at rest the appearance of relative uniform tracer uptake. Status post stress there is notation of diminished tracer uptake in portions of the mid to distal anterior and anteroapical segments. There is end systolic thickening and brightening. The gated Cardiolite study demonstrates myocardial thickening and inward wall motion. The reported LVEF is 69%. Impression: 1. Rest and stress SPECT her nuclear imaging demonstrate an element of body motion during image acquisition and post-rest changes concerning for an element of diminished myocardial perfusion/tracer uptake in portions of the mid to distal anterior and anteroapical segments potentially compatible with stress- induced myocardial ischemia, however, based upon the underlying body motion during image acquisition an element of shifting soft tissue attenuation/artifact cannot necessarily be excluded. 2. The gated Cardiolite study reports an LVEF of 69%. Based upon the aforementioned evaluation the patient was recommended for further evaluation with diagnostic cardiac catheterization. The procedure and risk were discussed with her. She was agreeable to this approach. The surgeon/proceduralist and patient have discussed in detail the risk of exposure to and/or potential harm posed by the COVID-19 virus with having a surgery/procedure at this time versus the risk of delaying the surgery/procedure . It is not possible to know either the risk of delaying the surgery or procedure or chance of getting an infection with perfect accuracy, but a joint decision was made between the patient and the surgeon/proceduralist to proceed at this time with the scheduled surgery/procedure as indicated on the consent form. I have re-examined the patient. There are no clinical changes since date of exam.
--- NOTE | 2021-01-22 12:31 | CL.D_ITS ---
Patient Name: REJI REYNOLDS Study Date: 01/20/2021 Performing: Zaki Hernandez MD Ht: 64.96 inches 165 cm : 1965 Wt: 313.06 lbs 142 kg Age: 55 Gender: female BSA: 2.39 PROCEDURE(S) PERFORMED JS98-EMA/COR/LV CLINICAL PROFILE AND INDICATIONS Indications: Suspected CAD Heart Failure: None Stress/Imaging Date: 12/24/2020 Angina Classification Anginal Classification w/in 2 Weeks: Anginal Equivalent Dyspnea CAD Presentations: Other: dyspnea on exertion CONCLUSIONS Elevated Left Ventricular End Diastolic Pressure Normal LV size, wall motion,and systolic function LVEF: by LV gram 60 % Normal coronary arteries RECOMMENDATIONS Risk factor modification Medical therapy DESCRIPTION OF PROCEDURE The patient arrived to the procedure lab. The risks and benefits of the procedure as well as a full d escription of our services here and current unavailability of surgical backup were fully explained to the patient and/or their significant other prior to the catheterization. The Timeout was completed, verifying the correct patient and procedure. The patient's procedural site was prepped and draped in the usual fashion. Local anesthetic was given subcutaneously to right radial region with Lidocaine 2% . Using a modified Seldinger technique, arterial access was obtained via the right radial artery, a 6 Fr sheath was inserted. Right Coronary Artery selective angiography was then performed in multiple v iews using a 5 Fr. 4.0 [place]ola catheter. Left Coronary Artery selective angiography was performed in mu ltiple views using a 5 Fr. JL3.5 catheter. Left Ventriculography was performed in REVELES projection usin g a 5 Fr. Pigtail catheter. LV to AO pullback pressures were then recorded.The arterial sheath was pulled and a TR Band was applied for hemostasis. Sheath flushed prior to removal. 11cc air inserted. CORONARY ANGIOGRAPHY DOMINANCE: Right Dominant LEFT HEART ASSESSMENT Left Ventricular Ejection Fraction: by LV Gram 60 % Normal LV wall motion Elevated Left Ventricular End Diastolic Pressure LVEDP: 21 mmHg LEFT MAIN: Angiographically normal LEFT ANTERIOR DESCENDING ARTERY: Angiographically normal CIRCUMFLEX ARTERY: Angiographically normal RIGHT CORONARY ARTERY: Angiographically normal AORTIC ROOT: Angiographically normal COMPLICATIONS No Complications PROCEDURE MEDICATIONS Fentanyl 50 mcg IV Versed 1 mg IV Oxygen: 2 L/min via nasal cannula SUMMARY OF HEMODYNAMIC DATA Time AIR REST ECG 09:10:42 AO 107/70 (87) SA 10:50:05 LV 146/-3, 21 11:03:56 LV 143/-7, 21 11:04:02 LV 138/-13, 19 11:04:49 LV 137/-11, 18 11:04:55 LVp 136/-10, 17 11:04:58 AOp 134/66 (95) 11:05:03 ECG 11:16:59 Signed By Zaki Hernandez MD On 01/20/2021 11:31:43 Zaki Hernandez MD
== END 2021-01-20 12:34 | disposition home or self-care (01) ==
LOC: CLSP 08:52
PROVIDERS: PCP Family Medicine; Referring Provider Internal Medicine Cardiovascular Disease; Visit Provider Internal Medicine Cardiovascular Disease
DX: I25.10 Atherosclerotic heart disease of native coronary artery without angina pectoris (principal); R06.09 Other forms of dyspnea; I10 Essential (primary) hypertension; K21.9 Gastro-esophageal reflux disease without esophagitis; F17.200 Nicotine dependence, unspecified, uncomplicated; E66.9 Obesity, unspecified; Z68.43 Body mass index [BMI] 50.0-59.9, adult
CPT/HCPCS: 36415; 71046; 80053; 82043; 82306; 82570; 84443; 84550; 85025; 85610; 85652; 85730; 86140; 93458; 99152; 99153; Q9967; C1769; C1894

== ENCOUNTER → 2021-03-11 07:44 | Outpatient (CLI) | payer MEDICAID, SELFPAY ==
[2021-01-19 07:48] VITALS: BMI 51.9
--- NOTE | 2021-03-12 13:33 | PFT ---
INTRODUCTION: The patient is a 56-year-old female that presents for pulmonary function studies secondary to a diagnosis of shortness of breath. Respiratory therapy reported good patient effort. Bronchodilators were used during testing. INTERPRETATION: Forced expiration spirometry demonstrates no evidence of a large airways obstructive ventilatory defect. There was no significant response to aerosolized bronchodilators. Spirograms are of fair quality and plateau normally. Body plethysmography was performed and reveals lung volumes to be within normal limits. Diffusing capacity by single breath CO is at the lower limits of normal. IMPRESSION: Grossly normal pulmonary function studies.
== END ==
PROVIDERS: PCP Family Medicine; Referring Provider Family Medicine; Visit Provider Family Medicine
DX: R06.02 Shortness of breath (principal)
CPT/HCPCS: 94060; 94726; 94729

== ENCOUNTER → 2021-03-23 11:44 | Outpatient (CLI) | payer MEDICAID, SELFPAY ==
[2021-03-23 12:55] LABS: Erythrocyte Sedimentation Rate 33 mm/hr (0-30)
[2021-03-23 12:59] LABS: Absolute Lymphocyte Count 2.31 X10^3/uL (0.83-4.51); Absolute Neutrophil Count 5.8 X10^3/uL (2.0-7.7); Basophil# 0.04 X10^3/uL; Basophil% 0.4 % (0-1); Eosinophil# 0.11 X10^3/uL; Eosinophils% 1.2 % (0-5); Hematocrit 44.1 % (37-47); Hemoglobin 14.6 g/dL (12.0-15.0); Lymphocyte # 2.31 X10^3/ul (0.83-4.51); Lymphocyte % 25.6 % (19-41); Mean Corp Hgb Conc 33.1 g/dL (32-36); Mean Corpuscular Volume 96.7 fL (81-99); Monocyte# 0.72 X10^3/uL; NRBC Flagged by Analyzer 0 % (0-5); Neutrophil # 5.78 X10^3/uL (2.7-7.7); Neutrophil % 64.2 % (47-70); Platelet Count 290 K/mm3 (150-450); RBC Distribution Width SD 46.2 fl (35.1-43.9); Red Blood Count 4.56 M/mm3 (4.2-5.4)
[2021-03-23 13:22] LABS: ALB/GLOB Ratio 0.9 RATIO (0.9-2.4); AST(SGOT) 21 U/L (15-37); Alanine Aminotransfer ALT/SGPT 32 U/L (13-56); Albumin, Serum 3.5 g/dL (3.2-5.0); Alkaline Phosphatase 106 U/L (45-117); Anion Gap 4 (5-15); BUN 8 mg/dL (7-18); BUN/Creat Ratio 10.1 RATIO (10-20); Calcium,Total 8.9 mg/dL (8.5-10.1); Chloride 107 mmol/L (98-107); Creatinine, Serum 0.79 mg/dL (0.55-1.02); EST Glomerular Filtration Rate 80 mL/min (>60); Est Glom Filt Rate - Afr Amer 96 mL/min (>60); Globulin 3.7 g/dL (2.2-4.2); Glucose 99 mg/dL (74-106); Potassium 3.9 mmol/L (3.5-5.1); Protein, Total 7.2 g/dL (6.4-8.2); Sodium Level 138 mmol/L (136-145)
== END ==
PROVIDERS: PCP Family Medicine; Referring Provider Family Medicine; Visit Provider Family Medicine
DX: R70.0 Elevated erythrocyte sedimentation rate (principal); M79.7 Fibromyalgia
CPT/HCPCS: 36415; 80053; 85025; 85652; 86769

== ENCOUNTER 2021-12-18 14:31 | Emergency (ER) | payer MEDICAID, SELFPAY ==
[2021-12-18 14:33] VITALS: BP 157/82; PULSE 107; RESP 22; TEMP 36.8; O2SAT 97; BMI 51.5
--- NOTE | 2021-12-18 15:32 | RAD_ITS ---
INDICATION: SOB EXAMINATION/TECHNIQUE: X-RAY - XR Chest 2 Views COMPARISON: 01/13/2021 FINDINGS: LINES/DEVICES: None. LUNGS: Hazy bibasilar airspace opacities without consolidation or pleural effusion. No pneumothorax. MEDIASTINUM AND CARDIOVASCULAR STRUCTURES: Cardiac silhouette not enlarged. Central airways and mediastinal contour are unremarkable. BONES AND SOFT TISSUES: Unremarkable. RAD/Chest PA and Lateral IMPRESSION: Hazy bibasilar infiltrates suspicious for pneumonia including atypical or viral pneumonia. Electronically Signed: Jimmy Hedrick MD at 16:53 EDT ,
--- NOTE | 2021-12-18 15:40 | CPS ---
Breathing treatment attempted, patient could not tolerate mask or medicine at 1550. Attempted again around 1630, patient wanted to wait. At 1735, patient declined breathing treatment.
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
--- NOTE | 2021-12-18 15:50 | EKG12_ITS ---
Test Reason : SOB Blood Pressure : / mmHG Vent. Rate : 099 BPM Atrial Rate : 099 BPM P-R Int : 160 ms QRS Dur : 080 ms QT Int : 356 ms P-R-T Axes : 056 039 066 degrees QTc Int : 456 ms Normal sinus rhythm Low voltage QRS Borderline ECG Confirmed by HEIDI HOGAN, CRISTINA ([id number]), graphic editor JOAQUIN GONZALEZ ([id number]) on 12/21/2021 10:09:11 A M Referred By: JANEEN/SARITHA Confirmed By:GRACE GORDON MD
[2021-12-18 15:52] VITALS: BP 145/90; PULSE 103; RESP 15; O2SAT 98
[2021-12-18] MEDS: LORazepam 2 MG/ML Syringe 0.5 MG IV (16:21)
[2021-12-18] MEDS: Ipratropium/Albuterol Sulfate 3 ML AMPUL.NEB INHALATION (16:21)
[2021-12-18 16:35] VITALS: BP 128/97; PULSE 96; RESP 18; TEMP 36.1; O2SAT 93
[2021-12-18 16:35] LABS: Absolute Lymphocyte Count 2.22 X10^3/uL (0.83-4.51); Absolute Neutrophil Count 8.7 X10^3/uL (2.0-7.7); Basophil# 0.05 X10^3/uL; Basophil% 0.4 % (0-1); Eosinophils% 0.8 % (0-5); Hematocrit 46.3 % (37-47); Hemoglobin 15.5 g/dL (12.0-15.0); Lymphocyte # 2.22 X10^3/ul (0.83-4.51); Lymphocyte % 18.5 % (19-41); Mean Corp Hgb Conc 33.5 g/dL (32-36); Mean Corpuscular Hgb 31.1 pg (27.0-32.0); Mean Corpuscular Volume 92.8 fL (81-99); Mean Platelet Vol. 8.9 fl (6.2-12.0); Monocyte# 0.89 X10^3/uL; Monocyte% 7.4 % (0-10); NRBC Flagged by Analyzer 0 % (0-5); Neutrophil % 72.5 % (47-70); Platelet Count 335 K/mm3 (150-450); RBC Distribution Width CV 13.1 % (11.6-14.6); RBC Distribution Width SD 44.4 fl (35.1-43.9); Red Blood Count 4.99 M/mm3 (4.2-5.4)
[2021-12-18 16:37] LABS: ALB/GLOB Ratio 0.9 RATIO (0.9-2.4); AST(SGOT) 20 U/L (15-37); Alanine Aminotransfer ALT/SGPT 32 U/L (13-56); Albumin, Serum 3.5 g/dL (3.2-5.0); Alkaline Phosphatase 133 U/L (45-117); Anion Gap 8 (5-15); BUN 14 mg/dL (7-18); BUN/Creat Ratio 15.3 RATIO (10-20); Calcium,Total 9.2 mg/dL (8.5-10.1); Chloride 111 mmol/L (98-107); Creatinine, Serum 0.92 mg/dL (0.55-1.02); EST Glomerular Filtration Rate 67 mL/min (>60); Est Glom Filt Rate - Afr Amer 81 mL/min (>60); Estimated Creatinine Clearance 61.44 ml/min; Glucose 128 mg/dL (74-106); Potassium 3.7 mmol/L (3.5-5.1); Protein, Total 7.5 g/dL (6.4-8.2); Sodium Level 141 mmol/L (136-145); Troponin-I HS 3 pg/mL (3.0-54.0)
[2021-12-18 16:57] LABS: D-Dimer Quantitative (DVT/PE) 0.52 FEU/ug/m (0.27-0.49)
[2021-12-18 17:00] VITALS: BP 139/79; PULSE 94; RESP 16; TEMP 36.8; O2SAT 96
[2021-12-18 18:38] LABS: Bacteria 0 SEEN /hpf (None Seen); Mucous, Urine 0 SEEN /hpf (<or=2+); White Blood Cells 0 SEEN /hpf (0-5)
[2021-12-18 18:57] LABS: Color, Urine Yellow (Yellow); Glucose, Dipstick Normal (Normal); Ketone-Dipstick Negative (Negative); Leukocyte Esterase-Dipstick Negative /ul (Negative); Nitrite-Dipstick Negative (Negative); Occult Blood-Urine 150 /ul (Negative); Protein-Dipstick Negative (Negative); Urine Bilirubin Dipstick Negative (Negative); Urine Clarity Clear (Clear); Urine Urobilinogen Normal (Normal)
[2021-12-18 19:08] LABS: Red Blood Cells-Urine 10-25 SEEN /hpf (0-5); Squamous Epithelial Cells - UA 0-5 SEEN /hpf (5-10)
--- NOTE | 2021-12-18 19:56 | NURSING ---
blood cultures ordered after first antibitoic hung. notified Dr Bergman of antibiotic infusion and he stated to draw blood cultures as ordered.
[2021-12-18] MEDS: Mag Hydrox/Al Hydrox/Simeth 30 ML UDC PO (20:20)
[2021-12-18 20:21] VITALS: BP 158/90; PULSE 96; RESP 20; O2SAT 95
== END 2021-12-18 20:26 | disposition home or self-care (01) ==
PROVIDERS: Emergency Provider Emergency Medicine; PCP Family Medicine; Visit Provider Emergency Medicine
DX: J18.9 Pneumonia, unspecified organism (principal); I10 Essential (primary) hypertension; F17.210 Nicotine dependence, cigarettes, uncomplicated; R06.00 Dyspnea, unspecified; E66.9 Obesity, unspecified; K21.9 Gastro-esophageal reflux disease without esophagitis
CPT/HCPCS: 71046; 80053; 81001; 84484; 85025; 85379; 87040; 87428; 93005; 94640; 96365; 96366; 96367; 96375; 99284; J7050; A4216; J0696

== ENCOUNTER → 2022-01-28 | Outpatient (CLI) | payer MEDICAID, SELFPAY ==
--- NOTE | 2022-01-28 16:46 | CT_ITS ---
STUDY: LOW DOSE CT LUNG CANCER SCREENING REASON FOR EXAM: Female, 56 years old. Tobacco Dependency RADIATION DOSAGE (If Supplied By Facility): CTDIvol = ( 4.02 ) mGy, DLP = ( 140.94 ) mGycm TECHNIQUE: No contrast was administered. Low dose technique was utilized (average mAS-38 and kVp 120). 1.25 mm axial source images with a slice interval of 1.25-mm were reconstructed in lung windows. Liver COMPARISON: None. NODULES: Nodule #: 1 Density: Solid Lung location: Right middle lobe: Along minor fissure with associated atelectasis. Location in series: Series Number: 2 Image: 105 Size - 4 mm average diameter Margin: Circumscribed Shape: Round Calcification: None Fat: None Temporal comparison: NA Nodule #: 2 Density: Solid Lung location: Lateral left lower lobe: Along lateral pleura. Location in series: Series Number: 2 Image: 150 Size -3.7 x 3.3 mm: 3.5 mm average diameter Margin: Circumscribed Shape: Irregular Calcification: None Fat: None Temporal comparison: NA Total lung nodules (excluding granulomas): Emphysema: No gross emphysematous change focal consolidation effusion or pneumothorax. Endobronchial lesion: None Aorta: Mild aortic arch atherosclerosis without ectasia. CORONARY ARTERIES: No densely calcified coronary atherosclerosis. Heart: No cardiomegaly or pericardial effusion. Pulmonary artery: Unremarkable for nonangiogram study Mediastinal nodes: Few scattered subcentimeter lymph nodes, nonpathologic by size criteria, largest 6 mm, pretracheal Other chest and abdominal findings: No acute osseous finding. Mild scattered thoracic vertebral bridging osteophytes. Limited upper abdominal visualization is unremarkable. CT/Low Dose CT Lung Screening IMPRESSION: Two solid pulmonary nodules 3 to 4 mm in size, overall LUNG-Rads 2: Benign appearance or behavior. RECOMMENDATION: Follow-up with annual screening low dose chest CT in 12 months. IMPORTANT NOTES FOR USE: ACR Lung-RADS Version 1.1 Assessment Categories Release Date: 2018 Category: Coded 0-4 bases on nodule(s) with highest degree of suspicion. Negative screen is defined as categories 1 and 2; a positive screen is defined as categories 3 and 4. Category 3 and 4A nodules that are unchanged on interval CT should be coded as category 2, and individuals returned to screening in 12 months. Category 4X: Category 3 or 4 nodules with additional imaging findings that increase the suspicion of lung cancer, such as spiculation, GGN that doubles in size in 1 year, enlarged lymph notes, etc. Category Modifiers: S (significant finding unrelated to lung cancer) Electronically Signed: Pipo Ness MD at 8:27 EDT ,
== END | disposition home or self-care (01) ==
LOC: CT 16:44
PROVIDERS: PCP Family Medicine; Visit Provider Internal Medicine Critical Care Medicine
DX: F17.210 Nicotine dependence, cigarettes, uncomplicated (principal)
CPT/HCPCS: 71271

== ENCOUNTER → 2022-06-18 | Outpatient (CLI) | payer MEDICAID, SELFPAY | END | disposition home or self-care (01) | PROVIDERS: PCP Family Medicine; Referring Provider Family Medicine; Visit Provider Family Medicine | DX: J02.9 Acute pharyngitis, unspecified (principal) | CPT/HCPCS: 87070 ==

== ENCOUNTER → 2023-06-03 | Outpatient (CLI) | payer MEDICARE, MEDICAID, SELFPAY ==
[2023-06-03 13:26] LABS: Hematocrit 45.5 % (37-47); Hemoglobin 14.8 g/dL (12.0-15.0); Mean Corp Hgb Conc 32.5 g/dL (32-36); Mean Corpuscular Hgb 31.4 pg (27.0-32.0); Mean Corpuscular Volume 96.4 fL (81-99); Mean Platelet Vol. 9.5 fl (6.2-12.0); Platelet Count 301 K/mm3 (150-450); RBC Distribution Width SD 46.5 fl (35.1-43.9); Red Blood Count 4.72 M/mm3 (4.2-5.4); White Blood Count 9.3 K/mm3 (4.4-11.0)
[2023-06-03 13:49] LABS: Microalbumin,Random Urine 28.9 mg/L (NO RANGE EST.); Microalbumin:Creatinine Ratio 28.1 mg/g CRE (<30 mg/g CRE)
[2023-06-03 13:54] LABS: AST(SGOT) 14 U/L (15-37); Alanine Aminotransfer ALT/SGPT 25 U/L (13-56); Albumin, Serum 3.5 g/dL (3.2-5.0); Alkaline Phosphatase 102 U/L (45-117); Anion Gap 7 (5-15); BUN 13 mg/dL (7-18); BUN/Creat Ratio 13.1 RATIO (10-20); Calcium,Total 8.7 mg/dL (8.5-10.1); Chloride 112 mmol/L (98-107); Creatinine, Serum 0.99 mg/dL (0.55-1.02); EST Glomerular Filtration Rate 61 mL/min (>60); Est Glom Filt Rate - Afr Amer 74 mL/min (>60); Globulin 3.6 g/dL (2.2-4.2); Glucose 108 mg/dL (74-106); Potassium 3.5 mmol/L (3.5-5.1); Protein, Total 7.1 g/dL (6.4-8.2); Sodium Level 141 mmol/L (136-145)
== END | disposition home or self-care (01) ==
PROVIDERS: PCP Family Medicine; Referring Provider Family Medicine; Visit Provider Family Medicine
DX: M79.7 Fibromyalgia (principal); I10 Essential (primary) hypertension; F32.9 Major depressive disorder, single episode, unspecified
CPT/HCPCS: 36415; 80053; 82043; 82570; 84443; 85027

== ENCOUNTER 2024-03-09 17:15 | Emergency (ER) | payer MEDICARE, SELFPAY ==
[2024-03-09 17:15] VITALS: BP 205/120; PULSE 113; PULSE 117; RESP 18; TEMP 36.3; O2SAT 95; O2SAT 96; BMI 49.1
[2024-03-09 17:22] VITALS: BP 191/83; PULSE 110; RESP 18; O2SAT 97
--- NOTE | 2024-03-09 18:28 | RAD_ITS ---
INDICATION: INJURY EXAMINATION/TECHNIQUE: X-RAY - RIGHT XR Hand Min 3 Views 3 VIEWS COMPARISON: Right hand x-rays 04/10/2019 FINDINGS: BONES: Metallic ring artifact on the thumb obscures portion of the first proximal phalanx. Acute comminuted fracture distal fifth metacarpal with mild volar angulation of the distal fragment. JOINTS: No dislocation. SOFT TISSUES: Soft tissue swelling dorsally overlying the metacarpals. RAD/Hand Min 3 Views IMPRESSION: Acute fifth metacarpal fracture. Electronically Signed: Ioana Temple MD at 19:14 EDT ,
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
[2024-03-09] MEDS: Ibuprofen 600 MG Tablet PO (18:33)
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
[2024-03-09 19:27] VITALS: BP 155/84; PULSE 79; RESP 16; O2SAT 98
[2024-03-09 20:31] VITALS: BP 152/85; PULSE 78; RESP 16; TEMP 36.7; O2SAT 98
== END 2024-03-09 20:33 | disposition home or self-care (01) ==
PROVIDERS: Emergency Provider Emergency Medicine; PCP Family Medicine; Visit Provider Emergency Medicine
DX: S62.336A Displaced fracture of neck of fifth metacarpal bone, right hand, initial encounter for closed fracture (principal); I10 Essential (primary) hypertension; S00.81XA Abrasion of other part of head, initial encounter; K21.9 Gastro-esophageal reflux disease without esophagitis; Z63.0 Problems in relationship with spouse or partner; Z63.6 Dependent relative needing care at home; S40.022A Contusion of left upper arm, initial encounter; T74.11XA Adult physical abuse, confirmed, initial encounter; Y07.030 Male partner, current, perpetrator of maltreatment and neglect; Y04.8XXA Assault by other bodily force, initial encounter
CPT/HCPCS: 29130; 73130; 99283